=== PATIENT | female | born 1940 | race Caucasian/White ===

== ENCOUNTER 2018-11-02 09:45 | Inpatient (IN) ==
--- NOTE | 2018-10-01 16:36 | PAT Medication Instructions ---
Medication Instructions Date of Service October 01, 2018 Home Medications acetaminophen [Tylenol Extra Strength] 500 mg PO Q6H PRN biotin 5 mg PO QAM bisacodyl [Dulcolax (bisacodyl)] 5 mg PO HS PRN bumetanide 0.5 mg PO BID cholecalciferol (vitamin D3) 5,000 unit PO QAM cyclosporine [Restasis] 1 drp OPHTHALMIC (EYE) Q12H dextran 70-hypromellose [GenTeal Tears Mild] 1 drp OPHTHALMIC (EYE) BID diazepam [Valium] 5 mg PO HS docusate sodium [Colace] 100 mg PO QPM doxazosin 1 mg PO QPM fexofenadine 180 mg PO HS flecainide 100 mg PO Q12H folic acid 1 mg PO QAM levothyroxine [Synthroid] 75 mcg PO 6XWK linagliptin [Tradjenta] 5 mg PO QPM melatonin 3 mg PO HS metoprolol succinate 25 mg PO QPM potassium chloride [Klor-Con] 20 meq PO QAM ranitidine HCl 150 mg PO QAM rosuvastatin [Crestor] 10 mg PO HS ruxolitinib [Jakafi] 10 mg PO BID sennosides [senna] 2 mg PO HS sumatriptan succinate [Imitrex] 50 mg PO UD PRN thiamine HCl (vitamin B1) 250 mg PO QAM ASK your prescriber and surgeon ruxolitinib [Jakafi] 10 mg PO BID Take morning of surgery With a small sip of water, OTHERWISE NOTHING TO EAT OR DRINK AFTER MIDNIGHT: acetaminophen [Tylenol Extra Strength] 500 mg PO Q6H PRN (if needed) cyclosporine [Restasis] 1 drp OPHTHALMIC (EYE) Q12H dextran 70-hypromellose [GenTeal Tears Mild] 1 drp OPHTHALMIC (EYE) BID flecainide 100 mg PO Q12H levothyroxine [Synthroid] 75 mcg PO 6XWK (if scheduled) ranitidine HCl 150 mg PO QAM sumatriptan succinate [Imitrex] 50 mg PO UD PRN (if needed) Take evening before surgery acetaminophen [Tylenol Extra Strength] 500 mg PO Q6H PRN (if needed) bisacodyl [Dulcolax (bisacodyl)] 5 mg PO HS PRN (if needed) bumetanide 0.5 mg PO BID cyclosporine [Restasis] 1 drp OPHTHALMIC (EYE) Q12H dextran 70-hypromellose [GenTeal Tears Mild] 1 drp OPHTHALMIC (EYE) BID diazepam [Valium] 5 mg PO HS docusate sodium [Colace] 100 mg PO QPM doxazosin 1 mg PO QPM fexofenadine 180 mg PO HS flecainide 100 mg PO Q12H linagliptin [Tradjenta] 5 mg PO QPM melatonin 3 mg PO HS metoprolol succinate 25 mg PO QPM rosuvastatin [Crestor] 10 mg PO HS sennosides [senna] 2 mg PO HS sumatriptan succinate [Imitrex] 50 mg PO UD PRN (if needed) Other Notes If you have any questions please call us at [phone] or [phone] or [phone] or [phone]
--- NOTE | 2018-10-02 11:27 | Anesthesiology Consultation ---
Date of Service October 02, 2018 Assessment & Plan (1) Encounter for pre-operative examination: CHECK PLATELET COUNT AM DOS DR CHEN IS PLANNING TO GIVE PLATELETS AM DOS-- OR AND BLOOD BANK NOTIFIED. PT ALSO LIVES 2HRS AWAY -- SURGEON'S OFFICE NOTIFIED MULTIPLE TIMES TO MAKE LATER/LAST CASE. Cardio Clearance scheduled for 10/30/18. Chart Review Chart Review: Acceptable Risk for Surgery (PENDING CARDIAC CLEARANCE (DRCA) 10/30) and Patient seen in Pre Admission Testing Teaching & Discussion Instructed NPO after midnight before surgery, except medications with 15 cc of water. Medication instructions provided according to the PAT guidelines. History Surgery Operation Date: 11/02/18 07:00 Proposed Procedures p Left Reverse Total Shoulder Arthroplasty - Fazal Chen, DO Height/Weight Height: 5 ft 3 in Weight: 58.1 kg Allergies Allergy/AdvReac Type Severity Reaction Status Date / Time aspartame AdvReac Unknown ARTIFICIAL Verified 09/11/18 16:24 SWEETENERS-MIGRAINES cheese AdvReac Unknown PARMESAN Verified 09/11/18 16:24 CHEESE-MIGRAINES doxycycline AdvReac Unknown Photosensit Verified 09/11/18 15:17 ivity lactose AdvReac Unknown MILK Verified 10/12/18 12:53 PRODUCTS-GI UPSET midazolam [From Versed] AdvReac Unknown UNCONTROLLABLE Verified 09/11/18 15:17 EYE MOVEMENT monosodium glutamate AdvReac Unknown MIGRAINES Verified 09/11/18 15:19 Yeast AdvReac Unknown AUTOLYSED-M Verified 09/11/18 16:24 IGRAINES Medications Home Medications Medication Instructions Recorded Confirmed Last Taken acetaminophen [Tylenol Extra 500 mg PO Q6H PRN 09/11/18 09/11/18 Unknown Strength] biotin 5 mg PO QAM 09/11/18 09/11/18 Unknown bisacodyl [Dulcolax (bisacodyl)] 5 mg PO HS PRN 09/11/18 09/11/18 Unknown bumetanide 0.5 mg PO BID 09/11/18 09/11/18 Unknown cholecalciferol (vitamin D3) 5,000 unit PO QAM 09/11/18 09/11/18 Unknown [Vitamin D3] cyclosporine [Restasis] 1 drp OPHTHALMIC (EYE) Q12H 09/11/18 09/11/18 Unknown dextran 70-hypromellose [GenTeal 1 drp OPHTHALMIC (EYE) BID 09/11/18 09/11/18 Unknown Tears Mild] diazepam [Valium] 5 mg PO HS 09/11/18 09/11/18 Unknown docusate sodium [Colace] 100 mg PO QPM 09/11/18 09/11/18 Unknown doxazosin 1 mg PO QPM 09/11/18 09/11/18 Unknown fexofenadine 180 mg PO HS 09/11/18 09/11/18 Unknown flecainide 100 mg PO Q12H 09/11/18 09/11/18 Unknown folic acid 1 mg PO QAM 09/11/18 09/11/18 Unknown levothyroxine [Synthroid] 75 mcg PO 6XWK 09/11/18 09/11/18 Unknown linagliptin [Tradjenta] 5 mg PO QPM 09/11/18 09/11/18 Unknown melatonin 3 mg PO HS 09/11/18 09/11/18 Unknown metoprolol succinate 25 mg PO QPM 09/11/18 09/11/18 Unknown potassium chloride [Klor-Con] 20 meq PO QAM 09/11/18 09/11/18 Unknown ranitidine HCl 150 mg PO QAM 09/11/18 09/11/18 Unknown rosuvastatin [Crestor] 10 mg PO HS 09/11/18 09/11/18 Unknown ruxolitinib [Jakafi] 10 mg PO BID 09/11/18 09/11/18 Unknown sennosides [senna] 2 mg PO HS 09/11/18 09/11/18 Unknown sumatriptan succinate [Imitrex] 50 mg PO UD PRN 09/11/18 09/11/18 Unknown thiamine HCl (vitamin B1) [Vitamin 250 mg PO QAM 09/11/18 09/11/18 Unknown B-1] Past Medical History Medical History Atrial fibrillation HX A FIB/A FLUTTER. Has had unsuccessful cardioversion in the past, eventually pacemaker placed. Some episodes of afib seen on pacer checks. Not anticoagulated due to chronic thrombocytopenia/anemia. Carotid artery stenosis Per cardio office note 05/2018, LICA < 50%, DAILY OK on 2018 imaging. 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 Hypothyroidism THYROID NODULES CHECKED ANNUALLY Maxillary sinusitis, chronic Migraine Myelofibrosis X 20 YRS-F/U DR [facility]IOLA [facility] -- has had over 90 units transfused. Chronic thrombocytopenia, avg plts 74-93. Myocardial Infarction "OLD DC"-SEEN 2016 ON EKG-PT NOT AWARE Osteoarthritis Pacemaker Placed for a-fib, Medtronic. Most recent check 06/19/18. Exercise / Class Metabolic Activity II 4-5 Yardwork/Stairs/Walk up hill (Pt walks 3x per week, can do stairs without CP or SOB, +SOB if carrying laundry.) Past Surgical History Surgical History History of adenoidectomy History of augmentation of both breasts X 2 History of axillary surgery R/L BIOPSIES-USUALLY USES RIGHT ARM FOR BLOOD DRAWS History of bilateral tubal ligation LAPAROSCOPIC History of bone marrow biopsy X 14-2000 THRU 2014 History of cardiac cath 2016 NO BLOCKAGES-NO STENTS History of cardioversion For Afib. Unsuccessful. History of cataract surgery R/L History of colonoscopy History of herniorrhaphy History of hysterectomy WITH BSO/APPENDECTOMY History of incision and drainage PERIANAL ABSCESS History of lumpectomy of right breast History of tonsillectomy History of tooth extraction History of vascular access device PORT L UPPER CHEST-REMAINS IN PLACE History of vein stripping Pacemaker IMPLANTED 2016, most recent check 06/19/18 S/P transesophageal echocardiogram (SONIA) X 2-LAST ONE 03/2017 WITH ABLATION [facility] Past Anesthesia History No Hx of Anesthesia Complications and No Family Hx of Anesthesia Complications History of PONV No Hx of Motion Sickness and History of PONV (single episode with NISHANT/BSO in s) Social History Smoking Status: Never smoker Do You Dip or Chew Tobacco: No Hx Alcohol Use: Yes Alcohol type: beer alcohol intake frequency: a few times a month Hx Substance Use: No Review of Systems Pt denies any recent chest pain, shortness of breath, palpitations, cough, fever or URI. +sinusitis, chronic Physical Exam Vital Signs BP: 158/56 (pt is anxious today -- presented BP logs she keeps at home, systolic BP usually under 120) P: 60bpm SPO2: 98% RA T: 97.8 F R: 12 ENMT Mouth: + dentures (upper and lower partials); no chipped teeth and no loose teeth Thyromental Distance: > or= 3.5 Finger Breadths (4) Mallampati Class: II Neck normal visual inspection; neck extension not limited Respiratory normal respiratory effort Auscultation: lungs clear to auscultation bilaterally Cardiovascular Rate/Rhythm: regular rate and regular rhythm Heart Sounds: no murmur Vessels: no carotid bruit Extremities: no edema Testing Laboratory Results 10/02/18 11:56 PT 10.2 Seconds (9.0-12.0) 10/02/18 11:56 INR 1.0 (0.9-1.1) 10/02/18 11:56 APTT 26.4 Seconds (21.0-31.0) 10/02/18 11:56 Blood Type A Negative 10/02/18 11:56 Antibody Screen POSITIVE A 10/02/18 11:56 09/24/18 SODIUM: 132 POTASSIUM: 4.3 CHLORIDE: 101 CO2: 27 BUN: 19.0 CREATININE: 1.30 GLUCOSE: 107 *Spoke to Margo at [facility] -- they have spoken to [facility] re: patient's extensive blood transfusion history, and are coordinating with them to have blood available that is compatible with the patient's multiple antibodies. Electrocardiogram Date: 06/04/18 A paced, V sensed. Heart rate 65 bpm. Chest X-Ray Date: 10/02/18 FINDINGS: No pneumothorax. No pleural effusions. The heart is normal in size. Right-sided dual-chamber pacemaker. Left subclavian Port-A-Cath which terminates in the expected location of the distal left brachiocephalic vein. The mid aspect of the tubing is looped. The lungs are hyperexpanded with mild apical predominant emphysematous changes. The lungs are clear. 1. No acute process within the chest. 2. Emphysema. 3. Left subclavian Port-A-Cath which terminates in the expected location of the distal left brachiocephalic vein. The mid aspect of the tubing is looped. Echocardiogram Date: 04/20/17 The left ventricle is normal in size and function. The right ventricle is normal in size and function. Left atrial appendage velocities are normal. No thrombus detected in the left atrial appendage. The intra-atrial septum is intact with no evidence for an atrial septal defect. There is a catheter/pacemaker lead seen in the RA cavity. There is moderate mitral regurgitation. There is mild to moderate tricuspid regurgitation. Aortic valve is trileaflet with no regurgitation present. Mild pulmonic valvular regurgitation. Cardiac Catheterization Date: 02/24/16 Findings: + normal Indication: POD 1 from PPM placement developed chest pain with anterolateral ST depressions on EKG. Conclusions: Left main has no significant disease. LAD has no significant disease. It gives off several small diagonals with no significant disease. The left circumflex has no significant disease; it gives off a large obtuse marginal with no significant disease. The RCA is dominant with mild luminal irregularities. Other Testing Pacer check 06/19/2018 Supervisor Counseling And Guidance: Medtronic Implanted: 02/23/16 Mode: AAIR<=>DDDR Pacin.6% RA paced; 0.2% RV paced Battery: 3.01 volts, 7 years remaining Summary: Regular scheduled home transmission. No events.
--- NOTE | 2018-10-02 12:25 | XRay Report ---
XR chest Pre-admission PA/Lat HISTORY: Preop. COMPARISON: None. FINDINGS: No pneumothorax. No pleural effusions. The heart is normal in size. Right-sided dual-chambe r pacemaker. Left subclavian Port-A-Cath which terminates in the expected location of the distal left brachiocephalic vein. The mid aspect of the tubing is looped. The lungs are hyperexpanded with mild apical predominant emphysematous changes. The lungs are clear. IMPRESSION: 1. No acute process within the chest. 2. Emphysema. 3. Left subclavian Port-A-Cath which terminates in the expected location of the distal left brachioce phalic vein. The mid aspect of the tubing is looped. Electronically signed by: Bernabe Arora M.D. 10/02/2018 12:24 PM
[2018-10-02 13:18] LABS: Partial Thromboplastin Time 26.4 Seconds (21.0-31.0); Prothrombin Time 10.2 Seconds (9.0-12.0)
[2018-10-02 13:21] LABS: Eosinophils # (auto) 0.01 K/uL (0-0.5); Eosinophils % (auto) 0.3 %; Hematocrit (blood only) 30.9 % (37-47); Hemoglobin 10.1 g/dL (12.0-16.0); Immature Granulocytes # (auto) 0.09 K/uL (0.00-0.02); Immature Granulocytes % (auto) 2.5 %; Lymphocytes % (auto) 8.2 %; Mean Corpuscular Hemoglobin 31.5 pg (25-34); Mean Corpuscular Hgb Conc 32.7 g/dL (32-36); Mean Corpuscular Volume 96.3 fL (80-100); Mean Platelet Volume 11.3 fL (7.4-10.4); Monocytes # (auto) 0.25 K/uL (0.11-0.59); Monocytes % (auto) 6.8 %; Neutrophils # (auto) 3.02 K/uL (1.4-6.5); Neutrophils % (auto) 82.2 %; Platelet Count 84 K/uL (130-400); Platelet Estimate Decreased (Normal); RDW Standard Deviation 56.6 fL (36.4-46.3); Red Blood Count 3.21 M/uL (4.2-5.4); White Blood Count 3.67 K/uL (4.8-10.8)
--- NOTE | 2018-11-02 06:37 | History & Physical Report ---
Date of Service November 02, 2018 Assessment & Plan (1) Rotator cuff arthropathy of left shoulder: We will proceed with a left reverse shoulder arthroplasty. We will transfuse her with platelets preoperatively. Postoperatively she will be kept overnight for postoperative medical management. She plans to use [facility] upon discharge. Present on Admission?: Yes History of Present Illness Chief Complaint: Rotator cuff arthropathy of the left shoulder Primary Care Provider: Jaquelinewaynenomi Armas is a pleasant 78-year-old female with multiple medical comorbidities. She is been dealing with chronic increasing left shoulder pain. MRI, CT scan, and x-rays were all diagnostic for cuff arthropathy of the left shoulder. After failing extensive conservative treatment, including multiple injections, she has elected to proceed with a left reverse shoulder arthroplasty. Allergies Allergy/AdvReac Type Severity Reaction Status Date / Time aspartame AdvReac Unknown ARTIFICIAL Verified 09/11/18 16:24 SWEETENERS-MIGRAINES cheese AdvReac Unknown PARMESAN Verified 09/11/18 16:24 CHEESE-MIGRAINES doxycycline AdvReac Unknown Photosensit Verified 09/11/18 15:17 ivity lactose AdvReac Unknown MILK Verified 10/12/18 12:53 PRODUCTS-GI UPSET midazolam [From Versed] AdvReac Unknown UNCONTROLLABLE Verified 09/11/18 15:17 EYE MOVEMENT monosodium glutamate AdvReac Unknown MIGRAINES Verified 09/11/18 15:19 Yeast AdvReac Unknown AUTOLYSED-M Verified 09/11/18 16:24 IGRAINES Home Medications Home Medications Medication Instructions Recorded Confirmed Type acetaminophen [Tylenol Extra 500 mg PO Q6H PRN 09/11/18 09/11/18 History Strength] biotin 5 mg PO QAM 09/11/18 09/11/18 History bisacodyl [Dulcolax (bisacodyl)] 5 mg PO HS PRN 09/11/18 09/11/18 History bumetanide 0.5 mg PO BID 09/11/18 09/11/18 History cholecalciferol (vitamin D3) 5,000 unit PO QAM 09/11/18 09/11/18 History [Vitamin D3] cyclosporine [Restasis] 1 drp OPHTHALMIC (EYE) Q12H 09/11/18 09/11/18 History dextran 70-hypromellose [GenTeal 1 drp OPHTHALMIC (EYE) BID 09/11/18 09/11/18 History Tears Mild] diazepam [Valium] 5 mg PO HS 09/11/18 09/11/18 History docusate sodium [Colace] 100 mg PO QPM 09/11/18 09/11/18 History doxazosin 1 mg PO QPM 09/11/18 09/11/18 History fexofenadine 180 mg PO HS 09/11/18 09/11/18 History flecainide 100 mg PO Q12H 09/11/18 09/11/18 History folic acid 1 mg PO QAM 09/11/18 09/11/18 History levothyroxine [Synthroid] 75 mcg PO 6XWK 09/11/18 09/11/18 History linagliptin [Tradjenta] 5 mg PO QPM 09/11/18 09/11/18 History melatonin 3 mg PO HS 09/11/18 09/11/18 History metoprolol succinate 25 mg PO QPM 09/11/18 09/11/18 History potassium chloride [Klor-Con] 20 meq PO QAM 09/11/18 09/11/18 History ranitidine HCl 150 mg PO QAM 09/11/18 09/11/18 History rosuvastatin [Crestor] 10 mg PO HS 09/11/18 09/11/18 History ruxolitinib [Jakafi] 10 mg PO BID 09/11/18 09/11/18 History sennosides [senna] 2 mg PO HS 09/11/18 09/11/18 History sumatriptan succinate [Imitrex] 50 mg PO UD PRN 09/11/18 09/11/18 History thiamine HCl (vitamin B1) [Vitamin 250 mg PO QAM 09/11/18 09/11/18 History B-1] Past Med/Surg History Medical History Atrial fibrillation HX A FIB/A FLUTTER. Has had unsuccessful cardioversion in the past, eventually pacemaker placed. Some episodes of afib seen on pacer checks. Not anticoagulated due to chronic thrombocytopenia/anemia. Carotid artery stenosis Per cardio office note 05/2018, LICA < 50%, DAILY OK on 2018 imaging. 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 Hypothyroidism THYROID NODULES CHECKED ANNUALLY Maxillary sinusitis, chronic Migraine Myelofibrosis X 20 YRS-F/U DR [facility] -- has had over 90 units transfused. Chronic thrombocytopenia, avg plts 74-93. Myocardial Infarction "OLD SD"-SEEN 2016 ON EKG-PT NOT AWARE Osteoarthritis Pacemaker Placed for a-fib, Medtronic. Most recent check 06/19/18. Surgical History History of adenoidectomy History of augmentation of both breasts X 2 History of axillary surgery R/L BIOPSIES-USUALLY USES RIGHT ARM FOR BLOOD DRAWS History of bilateral tubal ligation LAPAROSCOPIC History of bone marrow biopsy X 14-2000 THRU 2014 History of cardiac cath 2016 NO BLOCKAGES-NO STENTS History of cardioversion For Afib. Unsuccessful. History of cataract surgery R/L History of colonoscopy History of herniorrhaphy History of hysterectomy WITH BSO/APPENDECTOMY History of incision and drainage PERIANAL ABSCESS History of lumpectomy of right breast History of tonsillectomy History of tooth extraction History of vascular access device PORT L UPPER CHEST-REMAINS IN PLACE History of vein stripping Pacemaker IMPLANTED 2016, most recent check 06/19/18 S/P transesophageal echocardiogram (SONIA) X 2-LAST ONE 03/2017 WITH ABLATION [facility] Social History Preferred Language: Kinyarwanda Communication Ability: Effective 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 Beliefs That Will Affect Care: None Current Living Situation: Spouse Other Information That Helps Us Care for You: No Feels Safe at Home: Yes Safety Concerns: Feels Safe At This Time Smoking Status: Never smoker Do You Dip or Chew Tobacco: No ; Second Hand Exposure: No ; Hx Alcohol Use: Yes Alcohol type: beer Hx Substance Use: No Review of Systems All systems reviewed & are unremarkable except as noted in HPI & below Physical Exam Constitutional: WD/WN, vitals as above Eyes: PERRL, conjunctivae normal, anicteric sclerae ENMT: external ear and nose normal, oropharynx normal Neck: trachea midline, no thyromegaly Respiratory: normal respiratory effort Cardiovascular: RRR, no murmur, no edema Gastrointestinal (Abdomen): normal bowel sounds, soft, nontender, no hepatosplenomegaly Musculoskeletal: Physical examination of the left shoulder reveals decreased range of motion and significant weakness. There is tenderness palpation along the anterior glenohumeral joint line. The right upper extremity is neurovascularly intact. Psychiatric: A+Ox3, euthymic affect Results & Data Diagnostic Findings Radiographs of the left shoulder show some signs of osteoarthritis with blunting of the greater tuberosity and some superior migration of the humeral head on the glenoid.
[~2018-11-02 09:45] MED LIST: ACETAMINOPHEN 500 MG TAB PO SCH; BUPIVACAINE 0.5 % 5 MG/1 ML PF 10ML VIAL ONE; BUPIVACAINE LIPOSOME/PF 266 MG, BUPIVACAINE/EPINEPHRINE 50 ML, SODIUM CHLORIDE 0.9% 30 ... INFIL SCH; CEFAZOLIN 1000MG 1,000 MG/7.5 ML SYR IV SCH; FAMOTIDINE 20 MG TAB PO SCH; GABAPENTIN 300 MG CAP PO SCH; LR 15ML/HR IV SCH; LR 60ML/HR IV SCH; ROPIVACAINE 0.5% HCL/PF 150 MG, BUPIVACAINE 0.5% MPF 30 ML, EPINEPHrine 30MG/30ML (OR U... INFIL SCH; SODIUM CHLORIDE 0.9% 1,000 ML IV SCH; TRANEXAMIC ACID 1,000 MG **IV Intra-op IV SCH; TRANEXAMIC ACID 1,000 MG **IV Pre-op IV SCH
[2018-11-02 10:29] LABS: Platelet Count 71 K/uL (130-400)
[2018-11-02 10:43] LABS: Platelet Estimate Decreased (Normal)
--- NOTE | 2018-11-02 10:53 | History & Physical Bridge Note ---
Date of Service November 02, 2018 History & Physical Bridge Note I have examined the patient, reviewed the History & Physical and in the interval since the performance of the History & Physical I have noted the following changes of clinical significance: no changes noted
[2018-11-02] MEDS ORDERED: SODIUM CHLORIDE 0.9% 250 ML IV PRN (11:22)
[2018-11-02] MEDS ORDERED: LIDOCAINE HCL 2% 2 ML VIAL/AMP(20MG/ML) INFIL ONE (12:14)
[2018-11-02] MEDS ORDERED: fentaNYL citrate 100 MCG/2 ML VIAL ONE (12:14)
[2018-11-02] MEDS ORDERED: ONDANSETRON INJ 2 MG/ML 2 ML VIAL ONE (12:14)
[2018-11-02] MEDS ORDERED: PROPOFOL IV EMULSION 10 MG/ML 20 ML VIAL IV ONE (12:14)
[2018-11-02] MEDS ORDERED: MIDAZOLAM HCL 1 MG/ML 2ML VIAL ONE (12:14)
[2018-11-02] MEDS ORDERED: ROCURONIUM BROMIDE 10 MG/ML 5 ML VIAL ONE (12:14)
[2018-11-02] MEDS ORDERED: LIDOCAINE HCL 2% MPF (LOCAL) 5 ML VIAL INFIL ONE (13:12)
[2018-11-02] MEDS ORDERED: ORTHO JOINT ANESTHETIC ONE (13:22)
[2018-11-02] MEDS ORDERED: fentaNYL citrate 100 MCG/2 ML VIAL IV PRN (13:42)
[2018-11-02] MEDS ORDERED: ePHEDrine sulfate 50 MG/ML AMP IV PRN (13:42)
[2018-11-02] MEDS ORDERED: ATROPINE SULFATE 0.1 MG/ML 10ML SYR IV PRN (13:42)
[2018-11-02] MEDS ORDERED: ONDANSETRON INJ 2 MG/ML 2 ML VIAL IV PRN ×2 (13:42→16:09)
[2018-11-02] MEDS ORDERED: PHENYLEPHRINE HCL 10 MG/ML VIAL ONE (14:08)
[2018-11-02] MEDS ORDERED: GLYCOPYRROLATE 0.2 MG/ML VIAL ONE (14:50)
[2018-11-02] MEDS ORDERED: NEOSTIGMINE METHYLSULFATE 5 MG/5 ML SYR ONE (14:50)
--- NOTE | 2018-11-02 14:53 | Operative Report ---
Post Operative Report Pre & Post Diagnosis Operation Date: 11/02/18 12:30 Pre-Op Diagnosis: Left Shoulder Degenerative Joint Disease Post-Op Diagnosis: Left Shoulder Degenerative Joint Disease Procedure Operation Date: 11/02/18 12:30 Actual Procedures p Left Reverse Total Shoulder Arthroplasty(Left) - Fazal Bay DO Surgeon Fazal Bay DO Car Wash Attendant Automatic Fazal Wetzel PAC Estimated Blood Loss 100 Findings Consistent with Post-Op Diagnosis Specimens Left humeral head Complications none Disposition Disposition: Recovery Room Indications Chanda is a pleasant 78-year-old female who presented my office with chronic increasing left shoulder pain. X-rays and clinical examination were diagnostic for rotator cuff arthropathy of the left shoulder. After failing conservative treatment, she elected to proceed with a left reverse shoulder arthroplasty. Description of Procedure Implants used: I used a [employer] Comprehensive reverse total shoulder arthroplasty system with a size 8 press fit mini humeral stem, a standard humeral tray and a standard humeral bearing, a 25 mm baseplate with a 6.5 mm central screw and superior and inferior locking screws, and a size 36 mm eccentric glenosphere. The patient arrived at [facility] for the above procedure. There were seen in the preoperative holding area and the operative extremity was identified and signed. They were given a preoperative antibiotic and an interscalene nerve block. They were taken back to the operating room, laid on table in supine position, and put under general anesthesia. They were then put into the beachchair position. The shoulder was then prepped and draped in sterile fashion. A timeout was done and the patient in the operative extremity was properly identified. A deltopectoral approach was used. Dissection was taken down through the fascia and the deltoid was retracted laterally and the conjoined tendon was retracted medially. The anterior shoulder was exposed. The long head of the biceps tendon was tenodesed to the upper border of the pectoralis major. The subscapularis was then released off the lesser tuberosity with a centimeter of cuff tissue remaining. The inferior capsule was released and the humeral head was dislocated. A canal finding reamer was sent down the center of the humeral canal. Sequential reaming up to a size 8 reamer was done. Off that reamer, a proximal humeral resection guide was placed. The proximal humerus was resected at 135 of inclination and 25 of retroversion. Osteophytes were then removed and the glenoid was exposed. Time was spent doing a complete capsular and labral release. The glenoid guide was then placed in the inferior aspect of the glenoid. A 3.2 mm Steinmann pin was then placed into the glenoid vault at 10 of inclination. The glenoid baseplate was then reamed. The final size 25 mm baseplate was then impacted in the place. A 6.5 mm central screw was then placed followed by superior and inferior locking screws. A 36 mm eccentric glenoid sphere was then impacted into place. Surrounding soft tissues were then injected with 100 cc an orthopedic pain control cocktail. The proximal humerus was then exposed. Sequential broaching of the humerus up to a size 8 broach was done. Off that broach a standard humeral tray was trialed. The shoulder was then reduced, brought through a full range of motion and felt to be stable. The shoulder was then dislocated and the broach was removed. The final size 8 mini press-fit humeral stem was then impacted into place. A standard humeral bearing was then snapped onto a standard humeral tray. The humeral tray was then impacted onto the humeral stem. The shoulder was once again reduced, brought through a full range of motion and felt to be stable. The subscapularis was chronically torn and unrepairable. A dilute betadyne lavage was then done for 3 minutes. The joint was then irrigated with normal saline solution. Hemostasis was obtained. The skin was then closed with 2-0 Vicryl, 3-0V lock suture, and nikolay. A soft dressing and a regular arm sling was placed. The patient was then extubated and transferred to a hospital bed. They were taken to the postanesthesia care unit in stable condition. They tolerated the procedure well. I attest to the content of the Intraoperative Record and any orders documented therein. Any exceptions are noted below.
--- NOTE | 2018-11-02 15:34 | XRay Report ---
XR shoulder LT min 2V routine CLINICAL HISTORY: Post shoulder surgery COMPARISON: May 2017 DISCUSSION: There are postsurgical changes of a reverse total left shoulder arthroplasty. There is no dislocation. There are overlying skin nikolay. There is air within the soft tissues consistent with recent surgery. IMPRESSION: Postsurgical changes of a reverse total left shoulder arthroplasty. No complicating featu res identified. Electronically signed by: Clint Yan M.D. 11/02/2018 3:33 PM
[2018-11-02] MEDS ORDERED: HYDROmorphone INJ 0.5 MG/0.5 ML SYR IV PRN (16:09)
[2018-11-02] MEDS ORDERED: BISACODYL 10 MG SUPP PR PRN (16:09)
[2018-11-02] MEDS ORDERED: METOCLOPRAMIDE HCL INJ 5 MG/ML 2 ML VIAL IV PRN (16:09)
[2018-11-02] MEDS ORDERED: MAGNESIUM HYDROXIDE SUSP 30 ML UDC PO PRN (16:09)
[2018-11-02] MEDS ORDERED: SUMAtriptan succinate 50 MG TAB PO PRN (16:09)
[2018-11-02] MEDS ORDERED: NALOXONE HCL 0.4 MG/1 ML VIAL/CARP IV PRN (16:09)
--- NOTE | 2018-11-02 16:24 | Anesthesiology Progress Note ---
Date of Service November 02, 2018 Anesthesia Post Procedure Vital Signs Vital Signs: Temp Pulse Pulse Pulse Resp BP BP 11/02/18 15:55 60 16 129/58 L 11/02/18 15:45 36.4 C L 62 16 156/49 H 11/02/18 15:35 63 18 157/61 H 11/02/18 15:25 66 14 159/58 H 11/02/18 15:17 36.0 C L 70 16 149/61 H 11/02/18 12:06 36.9 C 67 18 161/60 H 11/02/18 11:59 36.7 C 67 18 162/70 H 11/02/18 11:44 36.7 C 66 18 189/73 H 11/02/18 11:29 36.5 C 65 18 182/61 H 11/02/18 11:09 36.5 C 63 18 189/67 H 11/02/18 10:43 36.7 C 71 20 183/62 H Pulse Ox 11/02/18 15:55 97 11/02/18 15:45 98 11/02/18 15:35 98 11/02/18 15:25 100 11/02/18 15:17 100 11/02/18 12:06 11/02/18 11:59 97 11/02/18 11:44 98 11/02/18 11:29 99 11/02/18 11:09 98 11/02/18 10:43 97 Transfer of Care Handoff Completed per policy Notes Mental Status: alert / awake / arousable Patient Amnestic to Procedure: Yes Nausea / Vomiting: adequately controlled Pain: adequately controlled Airway Patency, RR, SpO2: stable & adequate BP & HR: stable & adequate Hydration State: stable & adequate Anesthetic Complications: no major complications apparent and Pt Satisfied with anesthetic care
[2018-11-02] MEDS ORDERED: PHARMACY GLYCEMIC MGMT CONSULT PRN (16:47)
[2018-11-02] MEDS: BUMETANIDE 1 MG TAB PO SCH (18:02)
[2018-11-02] MEDS: FLECAINIDE ACETATE 100 MG TABLET PO SCH (18:02)
[2018-11-02] MEDS: INSULIN ASPART 100 UNITS/ML 3 ML PEN SC SCH ×2 (18:11→20:39)
[2018-11-02] MEDS ORDERED: COUGH DROP (SUGAR FREE) LOZ 24 LOZ/1 BOX BUCCAL PRN (18:28)
[2018-11-02] MEDS ORDERED: COUGH DROP (SUGAR FREE) LOZ 24 LOZ/1 BOX BUCCAL ONE (18:34)
[2018-11-02] MEDS: SODIUM CHLORIDE 0.9% 1000ML 1,000 ML IV SCH (19:48)
[2018-11-02] MEDS: FEXOFENADINE HCL 180 MG TAB PO SCH (20:32)
[2018-11-02] MEDS: DOXAZOSIN MESYLATE 1 MG TAB PO SCH (20:33)
[2018-11-02] MEDS: DOCUSATE SODIUM 100 MG CAP PO SCH ×2 (20:33)
[2018-11-02] MEDS: SENNA 8.6 MG TAB PO SCH (20:34)
[2018-11-02] MEDS: ROSUVASTATIN CALCIUM 10 MG TAB PO SCH (20:34)
[2018-11-02] MEDS: METOPROLOL SUCC 25MG EXT REL TAB PO SCH (20:34)
[2018-11-02] MEDS ORDERED: SENNA 8.6 MG TAB PO SCH (21:00)
[2018-11-02] MEDS: ACETAMINOPHEN 500 MG TAB PO SCH (21:38)
[2018-11-02] MEDS: CEFAZOLIN 2000MG 2,000 MG/15 ML SYR IV SCH (21:38)
[2018-11-03] MEDS: ACETAMINOPHEN 500 MG TAB PO SCH ×3 (05:30→17:17)
[2018-11-03] MEDS: CEFAZOLIN 2000MG 2,000 MG/15 ML SYR IV SCH (05:31)
[2018-11-03] MEDS: SODIUM CHLORIDE 0.9% 1000ML 1,000 ML IV SCH (06:10)
[2018-11-03] MEDS ORDERED: LEVOTHYROXINE SODIUM 75 MCG TABLET PO SCH (06:30)
[2018-11-03 06:52] LABS: Hematocrit (blood only) 25.5 % (37-47); Hemoglobin 8.5 g/dL (12.0-16.0); Mean Corpuscular Hemoglobin 32.4 pg (25-34); Mean Corpuscular Hgb Conc 33.3 g/dL (32-36); Mean Corpuscular Volume 97.3 fL (80-100); RDW Standard Deviation 60.3 fL (36.4-46.3); Red Blood Count 2.62 M/uL (4.2-5.4); White Blood Count 3.96 K/uL (4.8-10.8)
[2018-11-03 07:26] LABS: Mean Platelet Volume 10.3 fL (7.4-10.4); Platelet Count 65 K/uL (130-400)
[2018-11-03 07:39] LABS: BUN Creatinine Ratio 10.1 (10-20); Calcium 8.2 mg/dl (8.5-10.1); Creatinine Clr Calc Pharmacy 36.8 ml/min; Est GFR (African American) 58.7; Est GFR (Non-African American) 50.6; Potassium 3.7 mmol/L (3.5-5.1)
[2018-11-03 08:19] LABS: Immature Granulocytes # (auto) 0.01 K/uL (0.00-0.02); Immature Granulocytes % (auto) 0.3 %; Lymphocytes # (auto) 0.09 K/uL (1.2-3.4); Lymphocytes % (auto) 2.3 %; Monocytes # (auto) 0.32 K/uL (0.11-0.59); Monocytes % (auto) 8.1 %; Neutrophils # (auto) 3.54 K/uL (1.4-6.5); Neutrophils % (auto) 89.3 %
[2018-11-03] MEDS ORDERED: SODIUM CHLORIDE 0.9% 250 ML IV PRN ×2 (08:22→11:15)
--- NOTE | 2018-11-03 08:35 | Orthopedic Progress Note ---
Date of Service November 03, 2018 Assessment & Plan (1) Rotator cuff arthropathy of left shoulder: Overall she is doing very well. She is asymptomatic with regards to her left shoulder and her anemia. She has a history of myelofibrosis. She usually gets a transfusion of 2 units of packed red blood cells if her hemoglobin drops below 8. Her hemoglobin is currently 8.5 and likely to drop more by tomorrow. I am going to transfuse her with 2 units of packed red blood cells. I will orde r an H&H an hour after the second transfusion. If the H&H is reasonable then she can be discharged home later this afternoon. She will follow-up with orthopedics in 2 weeks. She will get physical therapy at the hospital before the blood transfusion this morning. Present on Admission?: Yes Subjective Chanda was seen and examined at bedside this morning. Overall she is doing very well. She is not having the left shoulder. She was able to get some sleep last night. She is asymptomatic and has no complaints. She has already been up and ambulating. Physical Exam Musculoskeletal: On physical examination of the left shoulder, the dressing is clean and dry. She has limited motion of her left hand because a nerve block is still working. She is wearing her sling as instructed. Results & Data Vital Signs (Past 12 Hours) Vital Signs Temp Pulse Pulse Resp BP Pulse Ox 11/03/18 06:52 36.3 C L 66 18 148/74 H 100 11/03/18 03:19 36.3 C L 64 18 157/68 H 97 11/02/18 23:37 36.2 C L 60 18 132/72 98 PG Care Time/CCT Total # of Minutes Spent Total Time Spent with Patient: Total time spent is greater than 50% in coordination of care (as documented) at patient's floor/unit and/or counseling patient:
[2018-11-03] MEDS: DOCUSATE SODIUM 100 MG CAP PO SCH ×4 (09:08→20:58)
[2018-11-03] MEDS: MULTIVITAMIN TAB PO SCH (09:08)
[2018-11-03] MEDS: POTASSIUM CHLORIDE PWD 20 MEQ PACK PO SCH (09:08)
[2018-11-03] MEDS: THIAMINE HCL 50 MG TABLET PO SCH (09:08)
[2018-11-03] MEDS: FLECAINIDE ACETATE 100 MG TABLET PO SCH ×2 (09:09→20:57)
[2018-11-03] MEDS: BUMETANIDE 1 MG TAB PO SCH ×2 (09:09→17:03)
[2018-11-03] MEDS: INSULIN ASPART 100 UNITS/ML 3 ML PEN SC SCH ×5 (09:11→20:58)
[2018-11-03] MEDS ORDERED: FUROSEMIDE IV SCH ×2 (12:00→18:00)
[2018-11-03] MEDS: OXYCODONE HCL IR 5 MG TAB (IMMEDIATE RELEASE) PO PRN (17:00)
[2018-11-03] MEDS: DOXAZOSIN MESYLATE 1 MG TAB PO SCH (20:57)
[2018-11-03] MEDS: SENNA 8.6 MG TAB PO SCH (20:57)
[2018-11-03] MEDS: METOPROLOL SUCC 25MG EXT REL TAB PO SCH (20:57)
[2018-11-03] MEDS: ROSUVASTATIN CALCIUM 10 MG TAB PO SCH (20:57)
[2018-11-03] MEDS: FEXOFENADINE HCL 180 MG TAB PO SCH (20:57)
[2018-11-04 00:24] LABS: Hematocrit (blood only) 31.3 % (37-47); Hemoglobin 10.4 g/dL (12.0-16.0)
[2018-11-04] MEDS: ACETAMINOPHEN 500 MG TAB PO SCH (05:44)
[2018-11-04 06:10] LABS: Hematocrit (blood only) 32.7 % (37-47); Mean Corpuscular Hemoglobin 32.4 pg (25-34); Mean Corpuscular Hgb Conc 33.6 g/dL (32-36); Mean Corpuscular Volume 96.2 fL (80-100); RDW Coefficient of Variation 17.7 % (11.5-14.5); RDW Standard Deviation 61.8 fL (36.4-46.3); White Blood Count 4.32 K/uL (4.8-10.8)
[2018-11-04 06:32] LABS: Mean Platelet Volume 11.6 fL (7.4-10.4); Platelet Count 69 K/uL (130-400)
[2018-11-04 06:55] LABS: Eosinophils # (auto) 0.02 K/uL (0-0.5); Eosinophils % (auto) 0.5 %; Immature Granulocytes # (auto) 0.05 K/uL (0.00-0.02); Immature Granulocytes % (auto) 1.2 %; Lymphocytes # (auto) 0.39 K/uL (1.2-3.4); Monocytes # (auto) 0.44 K/uL (0.11-0.59); Monocytes % (auto) 10.2 %; Neutrophils # (auto) 3.42 K/uL (1.4-6.5); Neutrophils % (auto) 79.1 %
[2018-11-04] MEDS: MULTIVITAMIN TAB PO SCH (08:50)
[2018-11-04] MEDS: FLECAINIDE ACETATE 100 MG TABLET PO SCH (08:50)
[2018-11-04] MEDS: BUMETANIDE 1 MG TAB PO SCH (08:50)
[2018-11-04] MEDS: THIAMINE HCL 50 MG TABLET PO SCH (08:50)
[2018-11-04] MEDS: DOCUSATE SODIUM 100 MG CAP PO SCH (08:51)
[2018-11-04] MEDS: POTASSIUM CHLORIDE PWD 20 MEQ PACK PO SCH (08:51)
[2018-11-04] MEDS: INSULIN ASPART 100 UNITS/ML 3 ML PEN SC SCH (08:51)
--- NOTE | 2018-11-04 09:05 | Progress Note ---
DATE: 11/04/2018 SUBJECTIVE: A 78-year-old white female postop day #2 from a left reverse arthroplasty. She is doing pretty well. She has got some underlying myelofibrosis and transfusion of 2 units of blood yesterday. She is doing well. No chest pain or shortness of breath. Not feeling dizzy or lightheaded. OBJECTIVE: VITAL SIGNS: Temperature 36.7. Vital signs stable. GENERAL: Physical examination shows a pleasant middle-aged female. She is sitting up in her bedside chair, looks comfortable. EXTREMITIES: Examination of left arm reveals the dressing to be clean, dry and intact. Shoulder is located. Sling is in place. She is neurologically intact. LABORATORY DATA: Hemoglobin 11.0. Hematocrit 32.7. ASSESSMENT: A 78-year-old white female postop day #2 from a left reverse shoulder arthroplasty, doing pretty well. Her anemia is improved. She is asymptomatic. PLAN: We are going to continue medical management. Continue postop protocol. We will mobilize this morning and if doing okay, we will discharge her to home. She will follow up with Dr. Bay in about 2 weeks. LAUREN
[2018-11-04] MEDS: OXYCODONE HCL IR 5 MG TAB (IMMEDIATE RELEASE) PO PRN (10:07)
--- NOTE | 2018-11-05 07:59 | Discharge Summary ---
Date of Service November 05, 2018 Admission HPI Per Admitting Provider Chanda is a pleasant 78-year-old female with multiple medical comorbidities. She is been dealing with chronic increasing left shoulder pain. MRI, CT scan, and x-rays were all diagnostic for cuff arthropathy of the left shoulder. After failing extensive conservative treatment, including multiple injections, she has elected to proceed with a left reverse shoulder arthroplasty. Principal Diagnosis Left reverse shoulder arthroplasty Discharge Data Allergies Allergy/AdvReac Type Severity Reaction Status Date / Time aspartame AdvReac Unknown ARTIFICIAL Verified 09/11/18 16:24 SWEETENERS-MIGRAINES cheese AdvReac Unknown PARMESAN Verified 09/11/18 16:24 CHEESE-MIGRAINES doxycycline AdvReac Unknown Photosensit Verified 09/11/18 15:17 ivity lactose AdvReac Unknown MILK Verified 10/12/18 12:53 PRODUCTS-GI UPSET midazolam [From Versed] AdvReac Unknown UNCONTROLLABLE Verified 09/11/18 15:17 EYE MOVEMENT monosodium glutamate AdvReac Unknown MIGRAINES Verified 09/11/18 15:19 Yeast AdvReac Unknown AUTOLYSED-M Verified 09/11/18 16:24 IGRAINES Consultations 11/02/18 16:09 Consult Case Management - Discharge Planning Routine Procedures Performed Operation Date: 11/02/18 12:30 Actual Procedures p Left Reverse Total Shoulder Arthroplasty(Left) - Fazal Bay DO Ordered Studies 11/02/18 05:00 US - OR guided needle placemen Routine Hospital Course (1) Rotator cuff arthropathy of left shoulder: On November 02, 2018 Chanda arrived at [facility] and underwent a left reverse shoulder arthroplasty without complication. She had a sixpack of platelets before the procedure. Postoperatively she was placed in an arm sling and discharged to general orthopedic floors. Her hospital course was relatively uneventful. On postop day #1 she was feeling okay and relatively asymptomatic. She does have a history of myelofibrosis. Her H&H had dropped to 8 and 25. She states that she normally gets a transfusion at this point. I transfused her with 2 units of irradiated packed red blood cells. She was able to get physical therapy that morning. Her pain was well controlled. On postop day #2 she continued to do well. Her H&H had risen to normal levels. She was then discharged home with physical therapy. She will follow-up with orthopedics in 2 weeks. Total Time Total Time Spent Total Time Spent (In Minutes): 20 Discharge Plan Discharge Items Patient Disposition: Home - Home Health Services Reason For Visit: Left shoulder Rotator Cuff Arthropathy Discharge Diagnosis: Left reverse shoulder arthroplasty Discharge Goals: Decrease discomfort and Improve function Activity: Per 'Additional Instructions' section Non-emergency contact: Surgeon Call non-emergency contact if: your wound has increased redness and your wound has increased drainage Follow-up/Referrals: Elie Singleton DO [Primary Care Provider] - Diet: Carb Consistent or DM2 Addtl Provider Instructions: Activity and Therapy Recommendations: * If you are using [facility] then therapy will be provided at your home until they feel you have accomplished all of your goals. * If you are using [facility] then Physical Therapy will be provided until they feel you are ready to start Outpatient Physical Therapy. * If you are not using home therapy then Outpatient Physical Therapy should start about 3-5 days from your day of surgery. Therapy will last about 8-12 weeks * Wear your sling for 3 weeks, unless otherwise instructed. You may remove your sling to shower and to dress, but otherwise, you should be in your sling at all times, including while sleeping * The shoulder replacement is very stable and you can use your hand while in the sling * You were shown a series of exercises in the hospital. Do these exercises daily including the exercises you were shown in physical therapy. Medications: * Narcotic You will likely be sent home from the hospital with a prescription for the narcotic pain medication that worked best throughout your stay. * Other medications may be prescribed for specific circumstances. If you have any questions, please call the office at . * Resume previous home medications unless otherwise instructed Dressing Care: Leave the plastic dressing in place for 5 days. After 5 days you may remove the plastic dressing. If the incision is not draining then you may leave the nikolay open to air. If there is a little bit of drainage or if the nikolay are getting stuck on your clothing then cover the incision with a dry dressing. The nikolay will be removed at your 2 week follow-up appointment. Showering: You may shower with the plastic dressing in place. Let the shower spray hit the other shoulder. You can pat the plastic dry. If the dressing becomes wet underneath the plastic then simply remove the dressing. Keep the incision dry until you are 5 days out from the day of surgery. At that time you can shower with the nikolay exposed. Let the soapy shower water run over the nikolay and pat them dry. Do not scrub or soak the incision. Things To Watch For: * Drainage from the incision site that occurs more than one week after your surgery. * Increased redness at the incision site. * Fever above 102 degrees Fahrenheit. * Unusual chest pain or shortness of breath. * Call [facility] at with any of the above problems Follow-Up Visit: Follow-up with Dr. Bay 2-3 weeks after your day of surgery. An appointment was probably scheduled when you signed-up for surgery in the office. If you have any questions call Office Instructions: More detailed instructions as well as Frequently Asked Questions were provided in a folder by our office when you signed-up for surgery. Please review these instructions when you get home. If you have any further questions or concerns, please feel free to call the office at [phone] Prescriptions: New oxycodone 5 mg Tablet 5 mg PO Q4H PRN (Reason: pain) Qty: 30 RF: 0 Continued doxazosin 1 mg Tablet 1 mg PO QPM RF: 0 sumatriptan succinate [Imitrex] 50 mg Tablet 50 mg PO UD PRN (Reason: Migraine Headache) RF: 0 fexofenadine 180 mg Tablet 180 mg PO HS RF: 0 thiamine HCl (vitamin B1) [Vitamin B-1] 250 mg Tablet 250 mg PO QAM RF: 0 bumetanide 0.5 mg Tablet 0.5 mg PO BID RF: 0 flecainide 100 mg Tablet 100 mg PO Q12H RF: 0 docusate sodium [Colace] 100 mg Capsule 100 mg PO QPM RF: 0 folic acid 1 mg Tablet 1 mg PO QAM RF: 0 rosuvastatin [Crestor] 10 mg Tablet 10 mg PO HS RF: 0 biotin 5 mg Tablet 5 mg PO QAM RF: 0 cholecalciferol (vitamin D3) [Vitamin D3] 5,000 unit Tablet 5,000 unit PO QAM RF: 0 GenTeal Tears Mild 0.1-0.3 % Drops 1 drp OPHTHALMIC (EYE) BID RF: 0 Jakafi 10 mg Tablet 10 mg PO BID RF: 0 sennosides [senna] 8.6 mg Tablet 2 mg PO HS RF: 0 melatonin 3 mg Tablet 3 mg PO HS RF: 0 acetaminophen [Tylenol Extra Strength] 500 mg Tablet 500 mg PO Q6H PRN (Reason: Pain) RF: 0 levothyroxine [Synthroid] 75 mcg Tablet 75 mcg PO 6XWK RF: 0 potassium chloride [Klor-Con] 20 mEq Packet 20 meq PO QAM RF: 0 ranitidine HCl 150 mg Tablet 150 mg PO QAM RF: 0 bisacodyl [Dulcolax (bisacodyl)] 5 mg Tablet,Delayed Release (Dr/Ec) 5 mg PO HS PRN (Reason: Constipation) RF: 0 Restasis 0.05 % Dropperette 1 drp OPHTHALMIC (EYE) Q12H RF: 0 metoprolol succinate 25 mg Capsule,Sprinkle,Er 24hr 25 mg PO QPM RF: 0 diazepam [Valium] 5 mg Tablet 5 mg PO HS RF: 0 Tradjenta 5 mg Tablet 5 mg PO QPM RF: 0 Stand-Alone Forms: [facility], [facility] Discharge Orders: Discharge Order (Routine); Ordered 11/03/18 Ordered By: Fazal Bay Admission Data Admit Date/Time: 11/02/18 15:21 Attending Provider: Fazal Bay Admit Provider: Fazal Bay Primary Care Provider: Elie Singleton Service: Surgical Services Other Interventions: Discharge Summary Assessment (RN) Last Done: 11/04/18 09:52 DC Date/Time DO NOT enter until pt leaves facility: 11/04/18 10:35
== END 2018-11-04 10:35 | disposition home health service (06) | DRG 483 ==
LOC: ASU 09:45 → 3E 15:21

== ENCOUNTER 2019-12-06 05:03 | Observation (INO) ==
--- NOTE | 2019-11-12 15:17 | PAT Medication Instructions ---
Medication Instructions Date of Service November 12, 2019 Home Medications GenTeal Tears Mild 1 drp OPHTHALMIC (EYE) BID PRN Jakafi 10 mg PO BID Restasis 1 drp OPHTHALMIC (EYE) Q12H Tradjenta 5 mg PO QPM acetaminophen [Tylenol Extra Strength] 500 mg PO Q6H PRN biotin 5 mg PO QAM bisacodyl [Dulcolax (bisacodyl)] 5 mg PO HS PRN bumetanide 0.25 mg PO BID cholecalciferol (vitamin D3) [Vitamin D3] 5,000 unit PO QAM diazepam [Valium] 5 mg PO HS docusate sodium [Colace] 100 mg PO QPM doxazosin 1 mg PO QDL flecainide 100 mg PO Q12H folic acid 1 mg PO QAM levothyroxine [Synthroid] 75 mcg PO 6XWK melatonin 3 mg PO HS metoprolol succinate 25 mg PO QPM potassium chloride [Klor-Con] 20 meq PO QAM rosuvastatin [Crestor] 10 mg PO HS sennosides [senna] 2 mg PO HS sumatriptan succinate [Imitrex] 50 mg PO UD PRN thiamine HCl (vitamin B1) [Vitamin B-1] 250 mg PO QAM gabapentin 100 mg capsule 100 mg PO HS carboxymethylcell-hypromellose [GenTeal Gel] 1 drp OPHTHALMIC (EYE) BID PRN denosumab [Prolia] 60 mg SUBCUT Q6M minoxidil 1 ml TOPICAL UD Continue as directed denosumab [Prolia] 60 mg SUBCUT Q6M levothyroxine [Synthroid] 75 mcg PO 6XWK ASK your prescriber and surgeon Jakafi 10 mg PO BID STOP taking 24 hours before surgery minoxidil 1 ml TOPICAL UD DO NOT take the morning of surgery biotin 5 mg PO QAM bumetanide 0.25 mg PO BID cholecalciferol (vitamin D3) [Vitamin D3] 5,000 unit PO QAM folic acid 1 mg PO QAM potassium chloride [Klor-Con] 20 meq PO QAM thiamine HCl (vitamin B1) [Vitamin B-1] 250 mg PO QAM Take morning of surgery With a small sip of water, OTHERWISE NOTHING TO EAT OR DRINK AFTER MIDNIGHT: GenTeal Tears Mild 1 drp OPHTHALMIC (EYE) BID PRN (if needed) Restasis 1 drp OPHTHALMIC (EYE) Q12H acetaminophen [Tylenol Extra Strength] 500 mg PO Q6H PRN (okay to take up to 4 hours prior to surgery if needed) doxazosin 1 mg PO QDL flecainide 100 mg PO Q12H sumatriptan succinate [Imitrex] 50 mg PO UD PRN (if needed) carboxymethylcell-hypromellose [GenTeal Gel] 1 drp OPHTHALMIC (EYE) BID PRN (if needed) Take evening before surgery GenTeal Tears Mild 1 drp OPHTHALMIC (EYE) BID PRN (if needed) Restasis 1 drp OPHTHALMIC (EYE) Q12H Tradjenta 5 mg PO QPM acetaminophen [Tylenol Extra Strength] 500 mg PO Q6H PRN (if needed) bisacodyl [Dulcolax (bisacodyl)] 5 mg PO HS PRN (if needed) bumetanide 0.25 mg PO BID diazepam [Valium] 5 mg PO HS docusate sodium [Colace] 100 mg PO QPM flecainide 100 mg PO Q12H melatonin 3 mg PO HS metoprolol succinate 25 mg PO QPM rosuvastatin [Crestor] 10 mg PO HS sennosides [senna] 2 mg PO HS sumatriptan succinate [Imitrex] 50 mg PO UD PRN (if needed) gabapentin 100 mg capsule 100 mg PO HS carboxymethylcell-hypromellose [GenTeal Gel] 1 drp OPHTHALMIC (EYE) BID PRN (if needed) Other Notes If you have any questions please call us at [phone] or [phone] or [phone] or [phone]
--- NOTE | 2019-11-14 11:15 | Anesthesiology Consultation ---
Date of Service November 14, 2019 Assessment & Plan (1) Encounter for pre-operative examination: COVID Status: As of 11/13 assessment, patient denies travel to endemic area, known exposure/sick contacts, or symptoms of COVID19. Patient instructed that they and their household members must follow strict social distancing guidelines, wear a mask in public and avoid travel for 14 days prior to surgery. Preoperative COVID19 testing to be completed prior to surgery per surgeon's a rrangements. Patient made aware to self-isolate as much as possible between COVID testing and surgery. CARDIOLOGY CLEARANCE 11/05/19: "She is planning for possible knee surgery next month. She has been stable from a cardiac standpoint. Provided she has no change in symptoms before then, she may proceed with the operation without additional cardiac testing. Pacemaker should not be affected by this operation (below umbilicus) therefore no need to place a magnet during the operation or routinely interrogate the device postoperatively." POSSIBLE DIFFICULT SPINAL. PATIENT HAD LUMBAR DISCECTOMY+FUSION L4-L5 ON 07/15/19. PATIENT TO HAVE IRRADIATED PLATELETS TRANSFUSED AM DOS. Blood bank notified. Surgeon has ordered. Will notify OR to schedule patient to arrive an extra 2 hours early per blood bank request. VERSED ALLERGY. NOTE: Patient is a retired OR nurse. Chart Review Chart Review: Acceptable Risk for Surgery and Patient seen in Pre Admission Testing Teaching & Discussion Instructed NPO after midnight before surgery, except medications with 15 cc of water. Medication instructions provided according to the PAT guidelines. Per patient, instructed by provider to hold Jakafi x 7 days prior to surgery. History Surgery Operation Date: 12/06/19 08:50 Proposed Procedures p Right Total Knee Arthroplasty - Fazal Bay DO Height/Weight Height: 5 ft 3 in Weight: 58.7 kg Allergies Allergy/AdvReac Type Severity Reaction Status Date / Time aspartame AdvReac Unknown ARTIFICIAL Verified 11/12/19 10:51 SWEETENERS-MIGRAINES cheese AdvReac Unknown PARMESAN Verified 11/12/19 10:51 CHEESE-MIGRAINES doxycycline AdvReac Unknown Photosensit Verified 11/12/19 10:51 ivity lactose AdvReac Unknown MILK Verified 11/12/19 10:51 PRODUCTS-GI UPSET midazolam [From Versed] AdvReac Unknown UNCONTROLLABLE Verified 11/12/19 10:51 EYE MOVEMENT monosodium glutamate AdvReac Unknown MIGRAINES Verified 11/12/19 10:51 Yeast AdvReac Unknown AUTOLYSED-M Verified 11/12/19 10:51 IGRAINES Medications Home Medications Medication Instructions Recorded Confirmed Last Taken GenTeal Tears Mild 1 drp OPHTHALMIC (EYE) BID PRN 09/11/18 11/12/19 11/02/18 06:15 Jakafi 10 mg PO BID 09/11/18 11/12/19 10/26/18 Restasis 1 drp OPHTHALMIC (EYE) Q12H 09/11/18 11/12/19 11/02/18 06:15 Tradjenta 5 mg PO QPM 09/11/18 11/12/19 11/01/18 18:15 acetaminophen [Tylenol Extra 500 mg PO Q6H PRN 09/11/18 11/12/19 11/02/18 06:15 Strength] biotin 5 mg PO QAM 09/11/18 11/12/19 11/01/18 08:00 bisacodyl [Dulcolax (bisacodyl)] 5 mg PO HS PRN 09/11/18 11/12/19 10/31/18 18:00 bumetanide 0.25 mg PO BID 09/11/18 11/12/19 11/01/18 18:00 cholecalciferol (vitamin D3) 5,000 unit PO QAM 09/11/18 11/12/19 11/01/18 08:00 [Vitamin D3] diazepam [Valium] 5 mg PO HS 09/11/18 11/12/19 11/01/18 22:00 docusate sodium [Colace] 100 mg PO QPM 09/11/18 11/12/19 11/01/18 18:00 doxazosin 1 mg PO QDL 09/11/18 11/12/19 11/01/18 18:00 flecainide 100 mg PO Q12H 09/11/18 11/12/19 11/02/18 06:15 folic acid 1 mg PO QAM 09/11/18 11/12/19 11/01/18 08:00 levothyroxine [Synthroid] 75 mcg PO 6XWK 09/11/18 11/12/19 11/02/18 06:15 melatonin 3 mg PO HS 09/11/18 11/12/1911/01/19 22:00 metoprolol succinate 25 mg PO QPM 09/11/18 11/12/19 11/01/18 18:00 potassium chloride [Klor-Con] 20 meq PO QAM 09/11/18 11/12/19 11/01/18 08:15 rosuvastatin [Crestor] 10 mg PO HS 09/11/18 11/12/19 11/01/18 22:00 sennosides [senna] 2 mg PO HS 09/11/18 11/12/19 11/01/18 12:00 sumatriptan succinate [Imitrex] 50 mg PO UD PRN 09/11/18 11/12/19 Unknown thiamine HCl (vitamin B1) [Vitamin 250 mg PO QAM 09/11/18 11/12/19 11/01/18 08:00 B-1] gabapentin 100 mg capsule 100 mg PO HS 02/18/19 11/12/19 Unknown carboxymethylcell-hypromellose 1 drp OPHTHALMIC (EYE) BID PRN 11/12/19 11/12/19 Unknown [GenTeal Gel] denosumab [Prolia] 60 mg SUBCUT Q6M 11/12/19 11/12/19 Unknown minoxidil 1 ml TOPICAL UD 11/12/19 11/12/19 Unknown Past Medical History Medical History Atrial fibrillation HX A FIB/A FLUTTER. Has had unsuccessful cardioversion in the past, eventually pacemaker placed. Some episodes of afib seen on pacer checks. Not anticoagulated due to chronic thrombocytopenia/anemia. Carotid artery stenosis Per cardio office note 05/2018, LICA < 50%, DAILY OK on 2018 imaging. 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 Hypothyroidism THYROID NODULES CHECKED ANNUALLY Maxillary sinusitis, chronic Migraine Myelofibrosis X 20 YRS-F/U DR FABIOLA SOLOMON [facility] -- has had over 90 units transfused. Chronic thrombocytopenia, avg plts 74-93. Myocardial Infarction "OLD [place] seen on EKG in 2016" but no CAD seen on 2016 heart cath. Osteoarthritis Pacemaker Placed for a-fib, Medtronic. Most recent check 09/24/2019. Exercise / Class Metabolic Activity II 4-5 Yardwork/Stairs/Walk up hill (Does 14 steps daily at home many times, some WELSH if carrying something but otherwise OK, denies any CP) USes cane for stability. Past Surgical History Surgical History History of adenoidectomy History of augmentation of both breasts X 2 History of axillary surgery R/L BIOPSIES-USUALLY USES RIGHT ARM FOR BLOOD DRAWS History of bilateral tubal ligation LAPAROSCOPIC History of bone marrow biopsy X 14-2000 THRU 2014 History of cardiac cath 2015 NO BLOCKAGES-NO STENTS History of cardioversion For Afib. Unsuccessful. History of cataract surgery R/L History of colonoscopy History of herniorrhaphy History of hysterectomy WITH BSO/APPENDECTOMY History of incision and drainage PERIANAL ABSCESS History of lumbar spinal fusion June 2019; hardware present History of lumpectomy of right breast History of reverse total replacement of left shoulder joint (~10/2018) 11/02/2018 [facility] History of tonsillectomy History of tooth extraction History of vascular access device PORT L UPPER CHEST-REMAINS IN PLACE History of vein stripping Pacemaker IMPLANTED 2016 S/P transesophageal echocardiogram (SONIA) X 2-LAST ONE 03/2017 WITH ABLATION [facility] Past Anesthesia History No Hx of Anesthesia Complications and No Family Hx of Anesthesia Complications History of PONV No Hx of Motion Sickness and History of PONV (single episode 1983) Social History Smoking Status: Never smoker Do You Dip or Chew Tobacco: No Hx Alcohol Use: Yes Alcohol type: beer alcohol intake frequency: a few times a month Hx Substance Use: No Review of Systems Pt denies any recent chest pain, shortness of breath, palpitations, cough, fever, URI, or uncontrolled acid reflux. +Chronic rhinitis/sinus drainage Physical Exam Vital Signs BP: 154/75 P: 60bpm SPO2: 98% RA T: 98.0 F R: 16 ENMT Mouth: + dentures (partial upper and lower) and + dental restorations (several caps, including upper incisor); no chipped teeth and no loose teeth Thyromental Distance: > or= 3.5 Finger Breadths Mallampati Class: II Neck normal visual inspection and + limited neck extension Respiratory normal respiratory effort Auscultation: lungs clear to auscultation bilaterally Cardiovascular Rate/Rhythm: regular rate and regular rhythm Heart Sounds: no murmur Extremities: no edema Testing Laboratory Results 11/14/19 11:35 11/14/19 11:35 PT 10.3 Seconds (9.0-12.0) 11/14/19 11:35 INR 1.0 (0.9-1.1) 11/14/19 11:35 APTT 24.8 Seconds (21.0-31.0) 11/14/19 11:35 Hemoglobin A1c 5.4 % (4.5-5.6) 11/14/19 11:35 Blood Type A Negative 11/14/19 11:35 Antibody Screen POSITIVE A 11/14/19 11:35 *Surgeon's office flagged re: low WBC and HGB. They are already aware of h/o thrombocytopenia and planning for platelet tsf AM DOS. Anemia appears to be around baseline. *Cr. c/w stage III CKD. *Spoke to blood bank re: + antibodies. No further workup needed prior to surgery, if needed pt will be given Rh- blood. Electrocardiogram Date: 11/05/19 Paced rhythm at 72 bpm. Chest X-Ray Date: 07/12/19 Stable mild cardiomegaly, dual lead pacer in place. Port remains in place. No active pulmonary or pleural process. Echocardiogram Date: 07/12/19 EF: 60% Normal LV size. LV has normal systolic function. Normal right ventricular size and function. Mild mitral regurgitation with mitral annular calcification. The left atrium is severely enlarged. The right atrium is mildly enlarged. Diastolic function could not be assessed due to mitral annular calcification. Catheters consistent with dual-chamber pacemaker leads seen in the right ventricle and right atrium. As compared to 02/24/2016 there is no significant change. Stress Test Date: 02/16/18 Cardiac Catheterization Date: 02/24/16 No significant disease noted. Other Testing Pacemaker Interrogation 09/26/19 Model: Medtronic Implantation date: 02/23/16 Battery/Longevity: 2.83V/5.5yrs Mode: AAIR/DDDR Pacin.5% RA, < 1% GRAIN LOADER Events/episodes: 0
[2019-11-14 12:57] LABS: Hematocrit (blood only) 29.6 % (37-47); Hemoglobin 9.3 g/dL (12.0-16.0); Mean Corpuscular Hemoglobin 32.7 pg (25-34); Mean Corpuscular Hgb Conc 31.4 g/dL (32-36); Mean Corpuscular Volume 104.2 fL (80-100); Mean Platelet Volume 12.2 fL (7.4-10.4); Platelet Count 85 K/uL (130-400); RDW Coefficient of Variation 15.6 % (11.5-14.5); RDW Standard Deviation 59.5 fL (36.4-46.3); Red Blood Count 2.84 M/uL (4.2-5.4); White Blood Count 2.02 K/uL (4.8-10.8)
[2019-11-14 13:04] LABS: Partial Thromboplastin Ratio 0.9; Partial Thromboplastin Time 24.8 Seconds (21.0-31.0); Prothrombin Time 10.3 Seconds (9.0-12.0)
[2019-11-14 13:05] LABS: BUN Creatinine Ratio 13.2 (10-20); Calcium 9.4 mg/dl (8.5-10.1); Est GFR (African American) 40.9; Est GFR (Non-African American) 35.3; Potassium 4.5 mmol/L (3.5-5.1)
[2019-11-14 13:11] LABS: Estimated Average Glucose 108 mg/dl; Hemoglobin A1C 5.4 % (4.5-5.6)
[2019-11-14 13:14] LABS: Immature Granulocytes # (auto) 0.02 K/uL (0.00-0.02); Lymphocytes # (auto) 0.41 K/uL (1.2-3.4); Lymphocytes % (auto) 20.3 %; Monocytes % (auto) 9.9 %; Neutrophils # (auto) 1.39 K/uL (1.4-6.5); Neutrophils % (auto) 68.8 %
--- NOTE | 2019-12-05 14:37 | History & Physical Report ---
Date of Service December 05, 2019 Assessment & Plan (1) Osteoarthritis of right knee: We will proceed with a right total knee arthroplasty. Preoperatively she will require a sixpack of irradiated platelets. She has thrombocytopenia secondary to her myelofibrosis. After the surgery she will be admitted to the hospital for postop medical management. She plans to use home health up in [place] upon discharge. Present on Admission?: Yes History of Present Illness Chief Complaint: Primary osteoarthritis of the right knee Primary Care Provider: Elie Singleton Chanda is a pleasant 79-year-old female who is now 1 year status post post left reverse shoulder arthroplasty. She is doing very well with that. Unfortunately she is having a lot of pain in her right knee. X-rays and clinical examination have been diagnostic for advanced osteoarthritis of her right knee. She is failed years of conservative treatment including multiple injections. They are failing conservative treatment, she has elected to proceed with a right total knee arthroplasty. Allergies Allergy/AdvReac Type Severity Reaction Status Date / Time aspartame AdvReac Unknown ARTIFICIAL Verified 11/12/19 10:51 SWEETENERS-MIGRAINES cheese AdvReac Unknown PARMESAN Verified 11/12/19 10:51 CHEESE-MIGRAINES doxycycline AdvReac Unknown Photosensit Verified 11/12/19 10:51 ivity lactose AdvReac Unknown MILK Verified 11/12/19 10:51 PRODUCTS-GI UPSET midazolam [From Versed] AdvReac Unknown UNCONTROLLABLE Verified 11/12/19 10:51 EYE MOVEMENT monosodium glutamate AdvReac Unknown MIGRAINES Verified 11/12/19 10:51 Yeast AdvReac Unknown AUTOLYSED-M Verified 11/12/19 10:51 IGRAINES Home Medications Home Medications Medication Instructions Recorded Confirmed Type GenTeal Tears Mild 1 drp OPHTHALMIC (EYE) BID PRN 09/11/18 11/12/19 History Jakafi 10 mg PO BID 09/11/18 11/12/19 History Restasis 1 drp OPHTHALMIC (EYE) Q12H 09/11/18 11/12/19 History Tradjenta 5 mg PO QPM 09/11/18 11/12/19 History acetaminophen [Tylenol Extra 500 mg PO Q6H PRN 09/11/18 11/12/19 History Strength] biotin 5 mg PO QAM 09/11/18 11/12/19 History bisacodyl [Dulcolax (bisacodyl)] 5 mg PO HS PRN 09/11/18 11/12/19 History bumetanide 0.25 mg PO BID 09/11/18 11/12/19 History cholecalciferol (vitamin D3) 5,000 unit PO QAM 09/11/18 11/12/19 History [Vitamin D3] diazepam [Valium] 5 mg PO HS 09/11/18 11/12/19 History docusate sodium [Colace] 100 mg PO QPM 09/11/18 11/12/19 History doxazosin 1 mg PO QDL 09/11/18 11/12/19 History flecainide 100 mg PO Q12H 09/11/18 11/12/19 History folic acid 1 mg PO QAM 09/11/18 11/12/19 History levothyroxine [Synthroid] 75 mcg PO 6XWK 09/11/18 11/12/19 History melatonin 3 mg PO HS 09/11/18 11/12/19 History metoprolol succinate 25 mg PO QPM 09/11/18 11/12/19 History potassium chloride [Klor-Con] 20 meq PO QAM 09/11/18 11/12/19 History rosuvastatin [Crestor] 10 mg PO HS 09/11/18 11/12/19 History sennosides [senna] 2 mg PO HS 09/11/18 11/12/19 History sumatriptan succinate [Imitrex] 50 mg PO UD PRN 09/11/18 11/12/19 History thiamine HCl (vitamin B1) [Vitamin 250 mg PO QAM 09/11/18 11/12/19 History B-1] gabapentin 100 mg capsule 100 mg PO HS 02/18/19 11/12/19 History carboxymethylcell-hypromellose 1 drp OPHTHALMIC (EYE) BID PRN 11/12/19 11/12/19 History [GenTeal Gel] denosumab [Prolia] 60 mg SUBCUT Q6M 11/12/19 11/12/19 History minoxidil 1 ml TOPICAL UD 11/12/19 11/12/19 History Past Med/Surg History Medical History Atrial fibrillation HX A FIB/A FLUTTER. Has had unsuccessful cardioversion in the past, eventually pacemaker placed. Some episodes of afib seen on pacer checks. Not anticoagulated due to chronic thrombocytopenia/anemia. Carotid artery stenosis Per cardio office note 05/2018, LICA < 50%, DAILY OK on 2018 imaging. 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 Hypothyroidism THYROID NODULES CHECKED ANNUALLY Maxillary sinusitis, chronic Migraine Myelofibrosis X 20 YRS-F/U DR FABIOLA SOLOMON [facility] -- has had over 90 units transfused. Chronic thrombocytopenia, avg plts 74-93. Myocardial Infarction "OLD [place] seen on EKG in 2016" but no CAD seen on 2016 heart cath. Osteoarthritis Pacemaker Placed for a-fib, Medtronic. Most recent check 09/24/2019. Surgical History History of adenoidectomy History of augmentation of both breasts X 2 History of axillary surgery R/L BIOPSIES-USUALLY USES RIGHT ARM FOR BLOOD DRAWS History of bilateral tubal ligation LAPAROSCOPIC History of bone marrow biopsy X 14-2000 THRU 2014 History of cardiac cath 2016 NO BLOCKAGES-NO STENTS History of cardioversion For Afib. Unsuccessful. History of cataract surgery R/L History of colonoscopy History of herniorrhaphy History of hysterectomy WITH BSO/APPENDECTOMY History of incision and drainage PERIANAL ABSCESS History of lumbar spinal fusion June 2019; hardware present History of lumpectomy of right breast History of reverse total replacement of left shoulder joint (~10/2018) 11/02/2018 [facility] History of tonsillectomy History of tooth extraction History of vascular access device PORT L UPPER CHEST-REMAINS IN PLACE History of vein stripping Pacemaker IMPLANTED 2016 S/P transesophageal echocardiogram (SONIA) X 2-LAST ONE 03/2017 WITH ABLATION [facility] Social History Smoking Status: Never smoker Second Hand Exposure: No; Hx Alcohol Use: Yes Alcohol type: beer Hx Substance Use: No Preferred Language: Palestinian Communication Ability: Effective Care Transition Manager Required: No Beliefs That Will Affect Care: None Current Living Situation: Spouse Feels Safe at Home: Yes Assistive Devices: Brace/Splint/Immobilizer, Cane and Glasses Review of Systems Review of Systems: All systems reviewed & are unremarkable except as noted in HPI & below Physical Exam Constitutional: WD/WN, vitals as above Eyes: PERRL, conjunctivae normal, anicteric sclerae ENMT: external ear and nose normal, oropharynx normal Neck: trachea midline, no thyromegaly Respiratory: normal respiratory effort Cardiovascular: RRR, no murmur, no edema Gastrointestinal (Abdomen): normal bowel sounds, soft, nontender, no hepatosplenomegaly Musculoskeletal: On physical examination of the right knee there is a trace effusion. There is near full range of motion and no evidence of instability. There is significant tenderness palpation along the medial and lateral joint lines and over the distal femoral condyles. Psychiatric: A+Ox3, euthymic affect Results & Data Results & Data ([facility]) Diagnostic Findings Radiographs of the right knee demonstrate advanced osteoarthritis with joint space narrowing osteophyte formation and [id number] articulation. PG Care Time/CCT Total # of Minutes Spent Total Time Spent with Patient: Total time spent is greater than 50% in coordination of care (as documented) at patient's floor/unit and/or counseling patient: Coding Level of Care Code None Diagnoses Osteoarthritis of right knee M17.11
[2019-12-06] MEDS ORDERED: CEFAZOLIN 1000MG 1,000 MG/7.5 ML SYR IV SCH (06:00)
[2019-12-06] MEDS ORDERED: TRANEXAMIC ACID 1,000 MG **IV Pre-op IV SCH (06:00)
[2019-12-06] MEDS ORDERED: ACETAMINOPHEN 500 MG TAB PO SCH (06:00)
[2019-12-06] MEDS ORDERED: dexAMETHasone 4 MG TAB PO SCH (06:00)
[2019-12-06] MEDS ORDERED: ROPIVACAINE 0.5% HCL/PF 150 MG, BUPIVACAINE 0.5% MPF 30 ML, EPINEPHrine 30MG/30ML (OR U... INSTIL SCH (06:00)
[2019-12-06] MEDS ORDERED: FAMOTIDINE 20 MG TAB PO SCH (06:00)
[2019-12-06] MEDS ORDERED: TRANEXAMIC ACID 1,000 MG **IV Intra-op IV SCH (06:00)
[2019-12-06] MEDS ORDERED: GABAPENTIN 300 MG CAP PO SCH (06:00)
[2019-12-06] MEDS ORDERED: LR 60ML/HR IV SCH (06:00)
[2019-12-06] MEDS ORDERED: LR 500ML BOLUS, THEN 15ML/HR IV SCH (06:00)
--- NOTE | 2019-12-06 06:30 | History & Physical Bridge Note ---
Date of Service December 06, 2019 History & Physical Bridge Note I have examined the patient, reviewed the History & Physical and in the interval since the performance of the History & Physical I have noted the following changes of clinical significance: no changes noted
[2019-12-06] MEDS ORDERED: BUPIVACAINE 0.5 % 5 MG/1 ML PF 10ML VIAL ONE (06:33)
[2019-12-06] MEDS ORDERED: PROPOFOL IV EMULSION 10 MG/ML 20 ML VIAL IV ONE (06:36)
[2019-12-06] MEDS ORDERED: LIDOCAINE HCL 2% 2 ML VIAL/AMP(20MG/ML) INFIL ONE (06:36)
[2019-12-06] MEDS ORDERED: MIDAZOLAM HCL 1 MG/ML 2ML VIAL ONE (06:37)
[2019-12-06] MEDS ORDERED: fentaNYL citrate 100 MCG/2 ML VIAL ONE ×2 (06:37→08:33)
[2019-12-06] MEDS ORDERED: ePHEDrine sulfate 50 MG/ML AMP IV PRN (06:39)
[2019-12-06] MEDS ORDERED: ONDANSETRON INJ 2 MG/ML 2 ML VIAL IV PRN ×2 (06:39→10:46)
[2019-12-06] MEDS ORDERED: ATROPINE SULFATE 0.1 MG/ML 10ML SYR IV PRN (06:39)
[2019-12-06] MEDS ORDERED: ORTHO JOINT ANESTHETIC ONE (06:42)
[2019-12-06] MEDS ORDERED: ONDANSETRON INJ 2 MG/ML 2 ML VIAL ONE (07:47)
[2019-12-06] MEDS ORDERED: PHENYLEPHRINE 100MCG/ML 5ML SYR ONE (08:21)
--- NOTE | 2019-12-06 08:31 | Operative Report ---
PG Post Operative Report Pre & Post Diagnosis Operation Date: 12/06/19 12:30 Pre-Op Diagnosis: Right Knee Degnerative Joint Disease Post-Op Diagnosis: Right Knee Degnerative Joint Disease I identified the patient and participated in the time-out.: Yes Procedure Operation Date: 12/06/19 12:30 Actual Procedures p Right Total Knee Arthroplasty, Cemented(Right) - Fazal Bay DO Surgeon Fazal Bay DO Rest Room Attendant Fazal Wetzel PAC Estimated Blood Loss 10 Findings Consistent with Post-Op Diagnosis Specimens Right femoral and tibial bone Complications none Disposition Disposition: Recovery Room Indications Chanda is a pleasant 79-year-old female who presented my office with chronic increasing right knee pain. X-rays and clinical examination were diagnostic for advanced osteoarthritis of the right knee. After failing conservative treatment, she elected to proceed with a right total knee arthroplasty. Description of Procedure Implants used: I used a Emile Persona total knee arthroplasty system with a size 8 narrow femur, D tibia, 29 patella, and a size 11 medial congruent polyethylene bearing. All components were cemented in place with Palacos G cement. Chanda arrived [facility] for the above procedure. She was seen in the preoperative holding area and the operative extremity was identified and signed. She was given a preoperative antibiotic, and TXA. She was taken back to the operating room and laid on the table in supine position. She was given general anesthesia. The operative knee was then prepped and draped in sterile fashion. A timeout was done, and the patient and the operative extremity was properly identified. A midline incision was made directly over the patella. Dissection was taken down to the extensor mechanism. A subvastus arthrotomy was used. The medial retinaculum was released and the fat pad was mostly excised. The knee was flexed and the ACL, PCL, and meniscus were removed. A drill was sent down the center of the femoral canal followed by an intramedullary valerie. Off that valerie a distal femoral cutting block was placed. 9 mm was resected off the distal femur at 5 of valgus. A posterior referencing AP sizing guide was then placed on the distal femur. The femur measured to be a size 8 narrow. 2 drill holes were placed in 3 of external rotation. A 4-in-1 cutting block was then impacted into place. Anterior, posterior, and chamfer cuts were then made. The proximal tibia was then exposed. An external tibial alignment guide was placed. A tibial cut guide was then anchored in place and the proximal tibia was then resected. The posterior aspect of the knee was then opened up and any additional meniscus fragments and osteophytes were removed. The tibia measured to be a size D. The tibial plate was then placed in the appropriate rotation and the tibia was drilled and punched. Trial components were then placed. I used a size 11 medial congruent polyethylene insert. The knee was brought through a full range of motion and felt to be stable. The peg holes for the femoral component were then drilled. The patella was then everted and 9 mm was resected off the posterior aspect of the patella. The patella measured to be a size 29. 3 peg holes were then drilled. A trial patella was placed. The knee was once again brought through a full range of motion and felt to be stable. Trial components were then removed. The surrounding soft tissues were injected with 100 cc of an orthopedic pain control cocktail. All components were then cemented into place with Palacos G cement. The final polyethylene insert was then snapped into place. Once cement was dry the tourniquet was deflated. Hemostasis was obtained. A dilute betadyne lavage was then done for 3 minutes. The joint was then irrigated with normal saline solution. The subvastus arthrotomy was then closed with #1 Vicryl suture. The skin was closed with 2-0 Vicryl, 3-0V lock suture, and nikolay. A Silverlon and a soft compressive dressing were placed. She was then transferred to a hospital bed and taken to the postanesthesia care unit in stable condition. She tolerated the procedure well. Fazal Wetzel PA-C, was present for the entire procedure. He was critical for patient positioning, prepping, draping, retraction exposure, wound closure and application of sterile dressing. I attest to the content of the Intraoperative Record and any orders documented therein. Any exceptions are noted below.
[2019-12-06] MEDS: fentaNYL citrate 100 MCG/2 ML VIAL IV PRN ×6 (09:04→09:49)
--- NOTE | 2019-12-06 10:00 | XRay Report ---
XR knee RT 1 or 2V routine CLINICAL HISTORY: Postoperative evaluation. COMPARISON: Knee radiographs November 06, 2019. FINDINGS: Alignment of the total right knee arthroplasty is anatomic. There is no periprosthetic fra cture or unexpected radiopaque foreign body. There are skin nikolay. IMPRESSION: Expected findings following total right knee arthroplasty. ACT 112: Negative or not required by law. Electronically signed by: Lupillo Bernal M.D. 12/06/2019 9:59 AM
--- NOTE | 2019-12-06 10:09 | Anesthesiology Progress Note ---
Date of Service December 06, 2019 Anesthesia Post Procedure Vital Signs Vital Signs: Temp Pulse Pulse Pulse Resp BP BP 12/06/19 10:00 98.1 F 60 16 137/61 12/06/19 09:50 60 14 145/54 H 12/06/19 09:40 60 14 148/56 H 12/06/19 09:30 60 12 126/56 L 12/06/19 09:20 60 20 140/55 L 12/06/19 09:10 60 16 137/53 L 12/06/19 09:00 60 14 146/53 H 12/06/19 08:52 97.0 F L 60 14 131/58 L 12/06/19 07:25 97.2 F L 60 16 116/51 L 12/06/19 07:00 98.1 F 60 20 169/73 H 12/06/19 06:45 98.1 F 60 18 169/73 H 12/06/19 06:30 98.1 F 60 18 170/73 H 12/06/19 06:01 98.4 F 78 20 179/70 H Pulse Ox 12/06/19 10:00 100 12/06/19 09:50 100 12/06/19 09:40 100 12/06/19 09:30 100 12/06/19 09:20 98 12/06/19 09:10 96 12/06/19 09:00 100 12/06/19 08:52 100 12/06/19 07:25 100 12/06/19 07:00 100 12/06/19 06:45 100 12/06/19 06:30 100 12/06/19 06:01 99 Pain Intensity Right Knee: Pain Intensity: 4 Transfer of Care Handoff Completed per policy Notes Mental Status: alert / awake / arousable and participated in evaluation Patient Amnestic to Procedure: Yes Nausea / Vomiting: adequately controlled Pain: adequately controlled Airway Patency, RR, SpO2: stable & adequate BP & HR: stable & adequate Hydration State: stable & adequate Anesthetic Complications: no major complications apparent and Pt Satisfied with anesthetic care
[2019-12-06] MEDS ORDERED: SUMAtriptan succinate 50 MG TAB PO PRN (10:46)
[2019-12-06] MEDS ORDERED: METOCLOPRAMIDE HCL INJ 5 MG/ML 2 ML VIAL IV PRN (10:46)
[2019-12-06] MEDS ORDERED: MAGNESIUM HYDROXIDE SUSP 30 ML UDC PO PRN (10:46)
[2019-12-06] MEDS ORDERED: bisacodyL 10 MG SUPP PR PRN (10:46)
[2019-12-06] MEDS ORDERED: LEVOTHYROXINE SODIUM 75 MCG TABLET PO SCH (10:46)
[2019-12-06] MEDS ORDERED: HYDROmorphone INJ 0.5 MG/0.5 ML SYR IV PRN (10:46)
[2019-12-06] MEDS ORDERED: NALOXONE HCL 0.4 MG/1 ML VIAL/CARP IV PRN (10:46)
[2019-12-06] MEDS ORDERED: PHARMACY GLYCEMIC MGMT CONSULT PRN (11:06)
[2019-12-06] MEDS ORDERED: NovoLIN-N (NPH) PER UNIT CHARGE SQ ONE (11:30)
--- NOTE | 2019-12-06 11:33 | Pharmacy Report ---
Glycemic Control Consultation - Date of Service December 06, 2019 - Scope Scope: Glycemic Pharmacist consulted for glycemic control and to write orders per [facility] inpatient glycemic control protocol. - Objective Weight: 58.74 kg Accuchecks BSG (last 24hrs): 12/06/19 12/06/19 05:39 09:00 POC Glucose 132 H 135 H HbA1c: Hemoglobin A1c 5.4 % (4.5-5.6) 11/14/19 11:35 - Recent Pertinent Medications Outpatient Anti-diabetic Regimen: * Linagliptin * A1c = 5.4 % on 11/14/19 Risk Factors for Insulin Resistance: * Steroids: dexamethasone 8 mg po preop * Recent Surgery: POD 0 s/p TKA * Diet: T2DM - Assessment & Plan Assessment & Plan: ASSESSMENT: * 79 yo F with T2DM and good outpatient control on a single oral agent admitted with TKA * Steroids administered intra-operatively will likely cause short-term increased insulin resistance - will utilize basal/bolus. Selected NPH for basal as effects will not be as pronounced overnight. Anticipate that patient will only require this one dose today, and possibly another dose tomorrow AM. No further basal insulin anticipated after that time. * Will initiate Novolog at slightly tighter than weight-based moderate stress estimate given steroids PLAN FOR INPATIENT GLYCEMIC CONTROL: * Holding outpatient oral diabetes medications - anticipate ability to resume linagliptin in about 48 hours * Basal insulin * NPH 10 units SQ x1 now. May require one additional dose tomorrow AM. * Bolus insulin * NovoLog per scale ACHS or Q6hrs while NPO * Goal Range: Low 110 mg/dL - High 140 mg/dL * Correction Factor: 35 mg/dL/unit * Nutritional / Prandial insulin per carb ratio of 1 unit per 12 grams CHO consumed * Please note that the plan above was derived based on current level of insulin resistance and hospital stress. These recommendations are appropriate for inpatient admission only. Plan of care upon discharge will need to be reassessed to avoid potential outpatient hypo/hyperglycemia. Thank you.
[2019-12-06] MEDS: SODIUM CHLORIDE 0.9% 1000ML 1,000 ML IV SCH ×2 (11:34→21:24)
[2019-12-06] MEDS ORDERED: ARTIFICIAL TEARS OP PRN (11:37)
[2019-12-06] MEDS: BUMETANIDE 1 MG TAB PO SCH ×2 (12:23→21:25)
[2019-12-06] MEDS: FLECAINIDE ACETATE 100 MG TABLET PO SCH ×2 (12:23→21:25)
[2019-12-06] MEDS: THIAMINE HCL 50 MG TABLET PO SCH (12:24)
[2019-12-06] MEDS: DOXAZOSIN MESYLATE 1 MG TAB PO SCH (12:26)
[2019-12-06] MEDS: MULTIVITAMIN TAB PO SCH (12:27)
[2019-12-06] MEDS: DOCUSATE SODIUM 100 MG CAP PO SCH ×2 (12:31→21:26)
[2019-12-06] MEDS: FOLIC ACID 1 MG TAB PO SCH (12:32)
[2019-12-06] MEDS: POTASSIUM CHLORIDE PWD 20 MEQ PACK PO SCH (12:32)
[2019-12-06] MEDS: ASPIRIN 81 MG ECTAB PO SCH ×2 (12:32→20:43)
[2019-12-06] MEDS: KETOROLAC TROMETHAMINE 15 MG/ML VIAL IV SCH ×2 (12:58→17:48)
[2019-12-06] MEDS: INSULIN ASPART 100 UNITS/ML 3 ML PEN SC SCH ×3 (13:02→20:44)
[2019-12-06] MEDS: ACETAMINOPHEN 500 MG TAB PO SCH ×2 (13:03→21:24)
[2019-12-06] MEDS: CEFAZOLIN 2000MG 2,000 MG/15 ML SYR IV SCH ×2 (16:25→21:27)
[2019-12-06] MEDS: RUXOLITINIB PHOSPHATE PO SCH (16:26)
[2019-12-06] MEDS: RESTASIS: ORDER AWAITING ACTION SCH (17:16)
[2019-12-06] MEDS: ROSUVASTATIN CALCIUM 10 MG TAB PO SCH (20:41)
[2019-12-06] MEDS: METOPROLOL SUCC 25MG EXT REL TAB PO SCH (20:46)
[2019-12-06] MEDS ORDERED: DOCUSATE SODIUM 100 MG CAP PO SCH (21:00)
[2019-12-06] MEDS ORDERED: SENNA 8.6 MG TAB PO SCH (21:00)
[2019-12-06] MEDS: GABAPENTIN 100 MG CAP PO SCH (21:25)
[2019-12-06] MEDS: SENNA 8.6 MG TAB PO SCH (21:26)
[2019-12-07] MEDS: RESTASIS: ORDER AWAITING ACTION SCH ×3 (00:06→15:29)
[2019-12-07] MEDS: KETOROLAC TROMETHAMINE 15 MG/ML VIAL IV SCH ×5 (01:54→22:55)
[2019-12-07] MEDS ORDERED: LEVOTHYROXINE SODIUM 75 MCG TABLET PO SCH (06:30)
[2019-12-07] MEDS: ACETAMINOPHEN 500 MG TAB PO SCH ×3 (06:58→22:54)
[2019-12-07 07:02] LABS: Hematocrit (blood only) 22.2 % (37-47); Hemoglobin 7.1 g/dL (12.0-16.0); Mean Corpuscular Hemoglobin 33.5 pg (25-34); Mean Corpuscular Volume 104.7 fL (80-100); RDW Coefficient of Variation 14.3 % (11.5-14.5); RDW Standard Deviation 54.1 fL (36.4-46.3); Red Blood Count 2.12 M/uL (4.2-5.4); White Blood Count 3.63 K/uL (4.8-10.8)
[2019-12-07 07:08] LABS: Mean Platelet Volume 10.1 fL (7.4-10.4); Platelet Count 68 K/uL (130-400)
[2019-12-07 07:30] LABS: BUN Creatinine Ratio 13.9 (10-20); Calcium 7.7 mg/dl (8.5-10.1); Est GFR (African American) 46.4; Potassium 3.9 mmol/L (3.5-5.1)
[2019-12-07] MEDS ORDERED: SODIUM CHLORIDE 0.9% 250 ML IV PRN ×2 (07:59→08:00)
--- NOTE | 2019-12-07 08:04 | Orthopedic Progress Note ---
Date of Service December 07, 2019 Assessment & Plan (1) Status post right knee replacement: Overall she is doing fairly well. She does have a medical history of myelofibrosis. She has had 94 units of packed red blood cells transfused over her lifetime. 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 She received a sixpack of platelets preoperatively. Her H&H is now 7 and 22. At this level she says that she requires 2 units of packed red blood cells. Think that is reasonable given her medical diagnosis. We will proceed with 2 units of irradiated packed red blood cells today. We will recheck an H&H tomorrow morning. If everything looks good she will likely be discharged home. She is currently on aspirin 81 mg twice a day for DVT prophylaxis. Present on Admission?: No Admission and Anticipated Discharge Date Admission Date: December 06, 2019 Rosa Armas was seen and examined at bedside this morning. Overall she is doing very well. She does not seem to be having too much pain in her knee. She has been up and ambulating to the bathroom. She has no nausea and no feelings of fatigue. She has no other complaints. Physical Exam Musculoskeletal: On physical examination of the right knee, the dressing is clean and dry. Her right leg is out in full extension. She has active dorsiflexion plantarflexion of her right ankle. Results & Data ([facility]) Vital Signs (Past 12 Hours) Vital Signs Temp Pulse Resp BP BP Pulse Ox 12/07/19 07:08 36.5 C 67 16 152/73 H 95 12/07/19 03:55 36.5 C 67 16 111/50 L 96 12/06/19 23:00 36.6 C 61 16 110/48 L 98 Laboratory Results H & H 11/14/19 12/07/19 Range/Units 11:35 06:26 Hgb 9.3 L 7.1 L (12.0-16.0) g/dL Hct 29.6 L 22.2 L (37-47) % Coagulation 11/14/19 Range/Units 11:35 INR 1.0 (0.9-1.1) Diagnostic Findings Postoperative x-rays of the right knee show the prosthesis to be in anatomic alignment without any evidence of fracture, dislocation, or loosening. PG Care Time/CCT Total # of Minutes Spent Total Time Spent with Patient: Total time spent is greater than 50% in coordination of care (as documented) at patient's floor/unit and/or counseling patient: Coding Level of Care Code None Diagnoses Status post right knee replacement Z96.651
[2019-12-07] MEDS: INSULIN ASPART 100 UNITS/ML 3 ML PEN SC SCH ×4 (09:06→23:06)
[2019-12-07] MEDS: BUMETANIDE 1 MG TAB PO SCH ×2 (09:56→20:27)
[2019-12-07] MEDS: ASPIRIN 81 MG ECTAB PO SCH ×2 (09:56→20:30)
[2019-12-07] MEDS: POTASSIUM CHLORIDE PWD 20 MEQ PACK PO SCH (09:56)
[2019-12-07] MEDS: RUXOLITINIB PHOSPHATE PO SCH ×2 (09:57→20:45)
[2019-12-07] MEDS: DOCUSATE SODIUM 100 MG CAP PO SCH ×2 (09:57→20:26)
[2019-12-07] MEDS: FLECAINIDE ACETATE 100 MG TABLET PO SCH ×2 (09:57→22:56)
[2019-12-07] MEDS: FOLIC ACID 1 MG TAB PO SCH (09:57)
[2019-12-07] MEDS: THIAMINE HCL 50 MG TABLET PO SCH (09:57)
[2019-12-07] MEDS: MULTIVITAMIN TAB PO SCH (09:57)
[2019-12-07] MEDS: DOXAZOSIN MESYLATE 1 MG TAB PO SCH (11:08)
[2019-12-07] MEDS: OXYCODONE HCL IR 5 MG TAB (IMMEDIATE RELEASE) PO PRN ×2 (11:08→21:07)
--- NOTE | 2019-12-07 13:55 | Pharmacy Report ---
Glycemic Control Progress Note - Date of Service December 07, 2019 - Scope Glycemic Pharmacist consulted for glycemic control to write orders per [facility] inpatient glycemic control protocol. - Objective Accuchecks BSG(last 24 hours):: 12/06/19 12/06/19 12/07/19 17:28 20:39 06:26 Glucose 86 POC Glucose 116 H 199 H 12/07/19 12/07/19 08:24 11:59 Glucose POC Glucose 108 H 96 HbA1c:: Hemoglobin A1c 5.4 % (4.5-5.6) 11/14/19 11:35 - Recent Pertinent Medications The patient is currently receiving: * Basal insulin: NPH 10 units SQ x 1 * Correctional Insulin: Novolog Correction per scale ACHS Goal Range: Low 110 mg/dL - High 140 mg/dL Correction Factor: 35 mg/dL/unit * Prandial insulin: Per carb ratio of 1 unit per 12 grams CHO consumed - Outpatient Anti-Diabetic Meds Tradjenta 5 mg daily - Assessment & Plan ASSESSMENT: * See progress note from 12/06/2019 for more background info, in short: * Pt receiving SQ basal bolus insulin regimen for hyperglycemia secondary to baseline DM (outpatient regimen on hold). Patient is s/p R TKA. * Patient is currently receiving an average of 16 units of insulin per day * 10 units of basal insulin * 6 units of prandial/correctional insulin * BSGs ranging 116 - 199 mg/dl over the past 24hrs * Changes needed to insulin regimen: * AM Fasting BSG = 108 mg/dl. This is in goal range for patient based on inpatient targets and co-morbidities. Will give no additional basal insulin. * Post-prandial BSGs were elevated yesterday but trended downwards at lunch. Loosen to weight-based stress of 2 Novolog. * Total daily dose = <10 units. * Additional notes / comments: Continue to hold Tradjenta as non-formulary PLAN FOR INPATIENT GLYCEMIC CONTROL: * LOOSENING correction factor to 40 mg/dl/unit * LOOSENING carb ratio to 1 unit per 12 grams CHO consumed * Continuing goal range of Low 110 mg/dL - High 140 mg/dL RECOMMENDATIONS FOR DISCHARGE: * Patient's HbA1C is well controlled. Continue current home regimen. * goal HbA1C < 7% * current HbA1C 5.4% Thank you.
[2019-12-07] MEDS: ROSUVASTATIN CALCIUM 10 MG TAB PO SCH (20:30)
[2019-12-07] MEDS: GABAPENTIN 100 MG CAP PO SCH (20:32)
[2019-12-07] MEDS: SENNA 8.6 MG TAB PO SCH (20:33)
[2019-12-07] MEDS: METOPROLOL SUCC 25MG EXT REL TAB PO SCH (20:48)
[2019-12-08] MEDS: OXYCODONE HCL IR 5 MG TAB (IMMEDIATE RELEASE) PO PRN ×2 (03:51→10:35)
[2019-12-08] MEDS: RESTASIS: ORDER AWAITING ACTION SCH ×2 (05:35→09:56)
[2019-12-08] MEDS: KETOROLAC TROMETHAMINE 15 MG/ML VIAL IV SCH (06:37)
[2019-12-08] MEDS: ACETAMINOPHEN 500 MG TAB PO SCH (06:38)
[2019-12-08 07:56] LABS: Hemoglobin 9.5 g/dL (12.0-16.0)
--- NOTE | 2019-12-08 08:14 | Orthopedic Progress Note ---
Date of Service December 08, 2019 Assessment & Plan (1) Status post right knee replacement: Overall she is doing very well. She is not having too much pain in the right knee. She will be seen by physical therapy today for ambulation and range of motion exercises. Her H&H was normalized today. She can be discharged home later today. She will follow-up with orthopedics in 2 weeks. Present on Admission?: No Admission and Anticipated Discharge Date Admission Date: December 06, 2019 Rosa Armas was seen and examined at bedside this morning. Overall she is feeling very good. She is not having too much pain in the right knee. She has been up and ambulating with a walker. She has no complaints. Physical Exam Musculoskeletal: On physical examination of the right knee, the Silverlon dressing has some bloody drainage but there is no leaking. Her knee is out in full extension. She has active dorsiflexion and plantarflexion of the right ankle. Results & Data ([facility]) Vital Signs (Past 12 Hours) Vital Signs Temp Pulse Pulse Resp BP BP Pulse Ox 12/08/19 08:04 36.7 C 69 16 162/72 H 96 12/07/19 23:09 36.9 C 64 16 165/68 H 94 12/07/19 20:53 37.0 C 61 61 18 134/55 L 95 PG Care Time/CCT Total # of Minutes Spent Total Time Spent with Patient: Total time spent is greater than 50% in coordination of care (as documented) at patient's floor/unit and/or counseling patient: Coding Level of Care Code None Diagnoses Status post right knee replacement Z96.651
--- NOTE | 2019-12-08 08:16 | Discharge Summary ---
Date of Service December 08, 2019 Admission HPI Per Admitting Provider Chanda is a pleasant 79-year-old female who is now 1 year status post post left reverse shoulder arthroplasty. She is doing very well with that. Unfortunately she is having a lot of pain in her right knee. X-rays and clinical examination have been diagnostic for advanced osteoarthritis of her right knee. She is failed years of conservative treatment including multiple injections. They are failing conservative treatment, she has elected to proceed with a right total knee arthroplasty. Principal Diagnosis Right knee replacement Discharge Data Allergies Allergy/AdvReac Type Severity Reaction Status Date / Time aspartame AdvReac Unknown ARTIFICIAL Verified 12/06/19 05:39 SWEETENERS-MIGRAINES cheese AdvReac Unknown PARMESAN Verified 12/06/19 05:39 CHEESE-MIGRAINES doxycycline AdvReac Unknown Photosensit Verified 12/06/19 05:39 ivity lactose AdvReac Unknown MILK Verified 12/06/19 05:39 PRODUCTS-GI UPSET midazolam [From Versed] AdvReac Unknown UNCONTROLLABLE Verified 12/06/19 05:39 EYE MOVEMENT monosodium glutamate AdvReac Unknown MIGRAINES Verified 12/06/19 05:39 Yeast AdvReac Unknown AUTOLYSED-M Verified 12/06/19 05:39 IGRAINES Consultations 12/06/19 10:46 Consult Case Management - Discharge Planning Routine Procedures Performed Operation Date: 12/06/19 12:30 Actual Procedures p Right Total Knee Arthroplasty, Cemented(Right) - Fazal Bay DO Ordered Studies 12/06/19 05:00 US - OR guided needle placemen Routine Hospital Course (1) Status post right knee replacement: On December 06, 2019 Chanda arrived at [facility] and underwent a right knee replacement without complication. She does have a history of myelofibrosis and received a sixpack of platelets preoperatively. Postoperatively she was started on aspirin for DVT prophylaxis and transferred to the general orthopedic floors. Her hospital course was relatively uneventful. On postop day #1 her H&H was a little bit low, which was to be expected. She received 2 units of irradiated packed red blood cells. On postop day #2 she continued to do well. Her H&H has returned to her normal value. She was seen by physical therapy and was able to do ambulation and range of motion exercises. She was then discharged home. She will follow-up with orthopedics in 2 weeks. Total Time Total Time Spent Total Time Spent (In Minutes): 20 Discharge Plan Discharge Items Patient Disposition: Home - Home Health Services Reason For Visit: Right Knee Degnerative Joint Disease Discharge Diagnosis: Right knee replacement Activity: As commented below Non-emergency contact: Surgeon Call non-emergency contact if: your wound has increased redness and your wound has increased drainage Follow-up/Referrals: Elie Singleton DO [Primary Care Provider] - Diet: Regular Addtl Attending Provider Instructions: Activity and Therapy Recommendations: * If you are using [facility] then therapy will be provided at your home until they feel you have accomplished all of your goals. * If you are using [facility] then Physical Therapy will be provided until they feel you are ready to start Outpatient Physical Therapy. * If you are not using home therapy then Outpatient Physical Therapy should start about 3-5 days from your day of surgery. Therapy will last about 6-10 weeks * It is important not to put a pillow under your knee when you are relaxing or sleeping. It is just as important to make sure you are getting your knee perfectly straight as it is to regain your knee bend. * You were shown a series of exercises in the hospital. Do these exercises three times each day including the exercises you were shown in physical therapy. * Get up and walk several times each day. For the first four weeks, try not to stand or walk for more than one hour at a time. If you do stand or walk for more than one hour, you will not hurt anything, but your leg will likely swell. * As you feel comfortable, you may change from the walker or crutches to a cane and then to independent walking. Medications: * Narcotic You will likely be sent home from the hospital with a prescription for the narcotic pain medication that worked best throughout your stay. * Aspirin Most patients will be required to take Aspirin 81mg twice a day for 6 weeks after surgery. This is obtained [id number] and a prescription is not necessary. * Other medications may be prescribed for specific circumstances. If you have any questions, please call the office at . * Resume previous home medications unless otherwise instructed TEDs/Elastic Stockings: The white elastic stockings help limit swelling and prevent blood clots from forming in your legs.~ The more you wear them, the more they work. Wear them for six weeks. Dressing Care: Leave the Silverlon dressing in place for 7 days. After 7 days you may remove the dressing. If the incision is not draining then you may leave the nikolay open to air. If there is a little bit of drainage or if the nikolay are getting stuck on your clothing then cover the incision with a dry dressing. The nikolay will be removed at your 2 week follow-up appointment. Showering: You may shower with the Silverlon dressing in place. Do not let the shower spray hit the dressing directly. Pat the Silverlon dressing dry. If the dressing becomes wet underneath, then simply remove the dressing. Keep the incision dry until you are 7 days out from the day of surgery. After 7 days you may remove the Silverlon dressing and shower with the nikolay exposed. Let soapy water run over the nikolay and pat them dry. Do not scrub or soak the incision. Things To Watch For: * Drainage from the incision site that occurs more than one week after your surgery. * Increased redness at the incision site. * Fever above 102 degrees Fahrenheit. * Unusual chest pain or shortness of breath. * Call [facility] at with any of the above problems Follow-Up Visit: Follow-up with Dr. Bay's PA (Fazal Wetzel) 2-3 weeks after your day of surgery. He will remove your nikolay and answer any questions. If you have any additional questions or concerns, Dr Bay is usually in the office at the same time and will be available An appointment was probably scheduled when you signed-up for surgery in the office. If you have any questions call Office Instructions: More detailed instructions as well as Frequently Asked Questions were provided in a folder by our office when you signed-up for surgery. Please review these instructions when you get home. If you have any further questions or concerns, please feel free to call the office at [phone] Pending Studies at Discharge: No Stand-Alone Forms: My [facility] [employer] [facility], Smoking Cessation Medications and DC Order Prescriptions: New oxycodone 5 mg tablet 5 mg PO Q6H PRN (Reason: pain) Qty: 30 RF: 0 Continued gabapentin 100 mg capsule 100 mg PO HS RF: 0 minoxidil 2 % Solution 1 ml TOPICAL UD RF: 0 GenTeal Gel 0.25-0.3 % Drops, Liquid Gel 1 drp OPHTHALMIC (EYE) BID PRN (Reason: Dry Eye(S)) RF: 0 Prolia 60 mg/mL Syringe 60 mg SUBCUT Q6M RF: 0 doxazosin 1 mg Tablet 1 mg PO QDL RF: 0 sumatriptan succinate [Imitrex] 50 mg Tablet 50 mg PO UD PRN (Reason: Migraine Headache) RF: 0 thiamine HCl (vitamin B1) [Vitamin B-1] 250 mg Tablet 250 mg PO QAM RF: 0 bumetanide 0.5 mg Tablet 0.25 mg PO BID RF: 0 flecainide 100 mg Tablet 100 mg PO Q12H RF: 0 docusate sodium [Colace] 100 mg Capsule 100 mg PO QPM RF: 0 folic acid 1 mg Tablet 1 mg PO QAM RF: 0 rosuvastatin [Crestor] 10 mg Tablet 10 mg PO HS RF: 0 biotin 5 mg Tablet 5 mg PO QAM RF: 0 cholecalciferol (vitamin D3) [Vitamin D3] 5,000 unit Tablet 5,000 unit PO QAM RF: 0 GenTeal Tears Mild 0.1-0.3 % Drops 1 drp OPHTHALMIC (EYE) BID PRN (Reason: Dry Eye(S)) RF: 0 Jakafi 10 mg Tablet 10 mg PO BID RF: 0 sennosides [senna] 8.6 mg Tablet 2 mg PO HS RF: 0 melatonin 3 mg Tablet 3 mg PO HS RF: 0 acetaminophen [Tylenol Extra Strength] 500 mg Tablet 500 mg PO Q6H PRN (Reason: Pain) RF: 0 levothyroxine [Synthroid] 75 mcg Tablet 75 mcg PO 6XWK RF: 0 potassium chloride [Klor-Con] 20 mEq Packet 20 meq PO QAM RF: 0 bisacodyl [Dulcolax (bisacodyl)] 5 mg Tablet,Delayed Release (Dr/Ec) 5 mg PO HS PRN (Reason: Constipation) RF: 0 Restasis 0.05 % Dropperette 1 drp OPHTHALMIC (EYE) Q12H RF: 0 metoprolol succinate 25 mg Capsule,Sprinkle,Er 24hr 25 mg PO QPM RF: 0 diazepam [Valium] 5 mg Tablet 5 mg PO HS RF: 0 Tradjenta 5 mg Tablet 5 mg PO QPM RF: 0 Discharge Orders: Discharge Order (Routine); Ordered 12/08/19 Ordered By: Fazal Bay Admission Data Admit Date/Time: 12/06/19 08:48 Attending Provider: Fazal Bay Admit Provider: Fazal Bay Primary Care Provider: Elie Singleton Other Interventions: Discharge Summary Assessment (RN) Last Done: 12/06/19 17:17 Coding Level of Care Code D/C Day Management <30 mins Diagnoses Status post right knee replacement Z96.651
[2019-12-08] MEDS: INSULIN ASPART 100 UNITS/ML 3 ML PEN SC SCH (08:38)
[2019-12-08] MEDS: RUXOLITINIB PHOSPHATE PO SCH (09:55)
[2019-12-08] MEDS: BUMETANIDE 1 MG TAB PO SCH (09:56)
[2019-12-08] MEDS: ASPIRIN 81 MG ECTAB PO SCH (09:56)
[2019-12-08] MEDS: DOCUSATE SODIUM 100 MG CAP PO SCH (09:56)
[2019-12-08] MEDS: MULTIVITAMIN TAB PO SCH (09:57)
[2019-12-08] MEDS: POTASSIUM CHLORIDE PWD 20 MEQ PACK PO SCH (09:57)
[2019-12-08] MEDS: FLECAINIDE ACETATE 100 MG TABLET PO SCH (09:57)
[2019-12-08] MEDS: FOLIC ACID 1 MG TAB PO SCH (09:57)
[2019-12-08] MEDS: DOXAZOSIN MESYLATE 1 MG TAB PO SCH (09:57)
[2019-12-08] MEDS: THIAMINE HCL 50 MG TABLET PO SCH (09:57)
== END 2019-12-08 11:20 | disposition home health service (06) ==
LOC: ASU 05:03 → 3W 05:03

== ENCOUNTER 2020-06-19 09:51 | Observation (INO) ==
--- NOTE | 2020-05-25 12:13 | PAT Medication Instructions ---
Medication Instructions Date of Service May 25, 2020 Home Medications Medication Instructions Recorded oxycodone 5 mg PO Q6H PRN #30 tab 12/08/19 GenTeal Tears Mild 1 drp OPHTHALMIC (EYE) BID PRN Jakafi 10 mg PO BID Restasis 1 drp OPHTHALMIC (EYE) Q12H acetaminophen [Tylenol Extra Strength] 500 mg PO Q6H PRN biotin 5 mg PO QAM bisacodyl [Dulcolax (bisacodyl)] 5 mg PO HS PRN bumetanide 0.25 mg PO BID cholecalciferol (vitamin D3) [Vitamin D3] 5,000 unit PO QAM diazepam [Valium] 5 mg PO HS docusate sodium [Colace] 100 mg PO BID doxazosin 1 mg PO QDL flecainide 100 mg PO Q12H folic acid 1 mg PO QAM levothyroxine [Synthroid] 75 mcg PO 6XWK melatonin 3 mg PO HS metoprolol succinate 25 mg PO QPM potassium chloride [Klor-Con] 20 meq PO QAM rosuvastatin [Crestor] 10 mg PO HS sennosides [senna] 17.2 mg PO HS sumatriptan succinate [Imitrex] 50 mg PO UD PRN thiamine HCl (vitamin B1) [Vitamin B-1] 300 mg PO QAM gabapentin 100 mg capsule 100 mg PO HS Prolia 60 mg SUBCUT Q6M minoxidil 1 ml TOPICAL UD oxycodone 5 mg PO Q6H PRN Continue as directed Prolia 60 mg SUBCUT Q6M ASK your prescriber and surgeon Jakafi 10 mg PO BID STOP taking 24 hours before surgery minoxidil 1 ml TOPICAL UD DO NOT take the morning of surgery biotin 5 mg PO QAM bumetanide 0.25 mg PO BID cholecalciferol (vitamin D3) [Vitamin D3] 5,000 unit PO QAM docusate sodium [Colace] 100 mg PO BID folic acid 1 mg PO QAM potassium chloride [Klor-Con] 20 meq PO QAM thiamine HCl (vitamin B1) [Vitamin B-1] 300 mg PO QAM Take morning of surgery With a small sip of water, OTHERWISE NOTHING TO EAT OR DRINK AFTER MIDNIGHT: GenTeal Tears Mild 1 drp OPHTHALMIC (EYE) BID PRN (if needed) Restasis 1 drp OPHTHALMIC (EYE) Q12H acetaminophen [Tylenol Extra Strength] 500 mg PO Q6H PRN (okay to take up to 4 hours prior to surgery if needed) doxazosin 1 mg PO QDL flecainide 100 mg PO Q12H levothyroxine [Synthroid] 75 mcg PO 6XWK (if scheduled to take day of surgery) sumatriptan succinate [Imitrex] 50 mg PO UD PRN (if needed) oxycodone 5 mg PO Q6H PRN (okay to take up to 4 hours prior to surgery if needed) Take evening before surgery GenTeal Tears Mild 1 drp OPHTHALMIC (EYE) BID PRN (if needed) Restasis 1 drp OPHTHALMIC (EYE) Q12H acetaminophen [Tylenol Extra Strength] 500 mg PO Q6H PRN (if needed) bisacodyl [Dulcolax (bisacodyl)] 5 mg PO HS PRN (if needed) bumetanide 0.25 mg PO BID diazepam [Valium] 5 mg PO HS docusate sodium [Colace] 100 mg PO BID flecainide 100 mg PO Q12H melatonin 3 mg PO HS metoprolol succinate 25 mg PO QPM rosuvastatin [Crestor] 10 mg PO HS sennosides [senna] 17.2 mg PO HS sumatriptan succinate [Imitrex] 50 mg PO UD PRN(if needed) gabapentin 100 mg capsule 100 mg PO HS oxycodone 5 mg PO Q6H PRN (if needed) Other Notes If you have any questions please call us at [phone] or [phone] or [phone] or [phone]
--- NOTE | 2020-05-27 12:17 | Anesthesiology Consultation ---
Date of Service May 27, 2020 Assessment & Plan (1) Encounter for pre-operative examination: - COVID screening: Per assessment on 05/27: Travel screen- resided in [place], [place] 03/20- 05/23 (via airplane). No further travel planned prior to surgery. Uses PPE. Follows COVID precaution guidelines. No known COVID-19 positive contacts or current COVID-19 related symptoms. Patient fully vaccinated. Surgeon arranging preop COVID testing (06/15; [facility]). Awaiting results. - Seen by cardiology (11/05/19): preop evaluation appt done prior to Right TKA (done 12/06/19 at [facility])- "She is planning for possible knee surgery next month. She has been stable from a cardiac standpoint. Provided she has no change in symptoms before then, she may proceed with the operation without additional cardiac testing. Pacemaker should not be affected by this operation (below umbilicus) therefore no need to place a magnet during the operation or routinely interrogate the device postoperatively." - S/P Left reverse TSA (11/02/18): Grade view 1, MAC#3, ETT 7.0 + PNB at [facility] - S/P Right TKA (12/06/19): Hx L4-L5 lumbar fusion + chronic thrombocytopenia > done under general anesthesia > LMA#4 + PNB at [facility] - Chronic anemia and thrombocytopenia (hx myelofibrosis): Chronic anemia (baseline hgb 9-10 range) and chronic thrombocytopenia (plts baseline 70s-90s). Findings at baseline. Carolina at surgeon's office made aware > She states that Dr. Bay's plan is for "super pack of irradiated platelets pre op and 2 units of PRBC irradiated post op with antibodies." Mary at blood bank made aware (she is requesting surgeon fax them the order- Carolina made aware/states she will arrange). Cara at OR made aware. Will check CBC AM DOS. Chart Review Chart Review: Acceptable Risk for Surgery (pending evaluation AM DOS) and Patient seen in Pre Admission Testing Teaching & Discussion Pre-Anesthesia Teaching/Discussion Notes: Instructed NPO after midnight before surgery,except medications with 15 cc of water. Medication instructions provided according to the PAT guidelines. History Surgery Operation Date: 06/19/20 13:05 Proposed Procedures p Left Total Knee Arthroplasty - Fazal Bay, DO Height/Weight Height: 5 ft 3 in Weight: 59.3 kg Allergies Allergy/AdvReac Type Severity Reaction Status Date / Time aspartame AdvReac Unknown Artificial Verified 05/25/20 12:15 sweetners- migraines cheese AdvReac Unknown Parmesan Verified 05/25/20 12:15 cheese- migraines doxycycline AdvReac Unknown Photosensit Verified 05/13/20 09:15 ivity lactose AdvReac Unknown Milk Verified 05/25/20 12:15 products- GI upset midazolam [From Versed] AdvReac Unknown Uncontrollable Verified 05/25/20 12:15 eye movement monosodium glutamate AdvReac Unknown Migraines Verified 05/25/20 12:15 Yeast AdvReac Unknown Autolyzed- Verified 05/25/20 12:15 migraines Medications Home Medications Medication Instructions Recorded Confirmed Last Taken GenTeal Tears Mild 1 drp OPHTHALMIC (EYE) BID PRN 09/11/18 05/27/20 12/05/19 22:00 Jakafi 10 mg PO BID 09/11/18 05/27/20 11/29/19 18:00 Restasis 1 drp OPHTHALMIC (EYE) Q12H 09/11/18 05/27/20 12/05/19 20:00 acetaminophen [Tylenol Extra 500 mg PO Q6H PRN 09/11/18 05/27/20 12/06/19 01:15 Strength] biotin 5 mg PO QAM 09/11/18 05/27/20 12/05/19 08:00 bisacodyl [Dulcolax (bisacodyl)] 5 mg PO HS PRN 09/11/18 05/27/20 12/04/19 20:00 bumetanide 0.25 mg PO BID 09/11/18 05/27/20 12/05/19 18:00 cholecalciferol (vitamin D3) 5,000 unit PO QAM 09/11/18 05/27/20 12/05/19 08:00 [Vitamin D3] diazepam [Valium] 5 mg PO HS 09/11/18 05/27/20 12/05/19 22:00 docusate sodium [Colace] 100 mg PO BID 09/11/18 05/27/20 12/05/19 18:00 doxazosin 1 mg PO QDL 09/11/18 05/27/20 12/06/19 01:15 flecainide 100 mg PO Q12H 09/11/18 05/27/20 12/06/19 01:15 folic acid 1 mg PO QAM 09/11/18 05/27/20 12/05/19 08:00 levothyroxine [Synthroid] 75 mcg PO 6XWK 09/11/18 05/27/20 12/06/19 01:15 melatonin 3 mg PO HS 09/11/18 05/27/20 12/05/19 22:00 metoprolol succinate 25 mg PO QPM 09/11/18 05/27/20 12/05/19 18:00 potassium chloride [Klor-Con] 20 meq PO QAM 09/11/18 05/27/20 12/05/19 08:00 rosuvastatin [Crestor] 10 mg PO 09/11/18 05/27/20 12/05/19 22:00 sennosides [senna] 17.2 mg PO 09/11/18 05/27/20 12/05/19 12:00 sumatriptan succinate [Imitrex] 50 mg PO UD PRN 09/11/18 05/27/20 11/30/19 13:00 thiamine HCl (vitamin B1) [Vitamin 300 mg PO QAM 09/11/18 05/27/20 12/05/19 08:00 B-1] gabapentin 100 mg capsule 100 mg PO 02/18/19 05/27/20 12/05/19 22:00 Prolia 60 mg SUBCUT Q6M 11/12/19 05/27/20 06/07/19 minoxidil 1 ml TOPICAL UD 11/12/19 05/27/20 12/03/19 08:00 oxycodone 5 mg PO Q6H PRN #30 tab 12/08/19 05/27/20 Unknown Past Medical History Medical History Anemia Atrial fibrillation Hx a. fib/flutter > S/P unsuccessful cardioversions (Not anticoagulated due to chronic thrombocytopenia/anemia) > Eventually pacemaker placed (has had some episodes of afib seen on pacer checks) Carotid artery stenosis per cardio office note 05/2018, LICA < 50%, DAILY OK on 2018 imaging Chronic kidney disease Stage III (Dr. Indigo Renteria/[facility]') Diabetes mellitus, type 2 Diet controlled GERD (gastroesophageal reflux disease) History of ductal carcinoma in situ (DCIS) of breast s/p lumpectomy and XRT, 2000 History of paroxysmal supraventricular tachycardia s/p ablation x 2, most recently 03/2017 Hypothyroidism + Thyroid nodules (under annual surveillance) Maxillary sinusitis, chronic Migraine Myelofibrosis x20 years, follows with Dr. Killian Pena ([facility]), on Jakafi, s/p many blood transfusions (+ antibodies), chronic thrombocytopenia- baseline plts 70-90s Myocardial Infarction Possible "Old [place]" seen on EKG in 2016 > but no CAD seen on 2016 heart cath Osteoarthritis Pacemaker Implanted 2016 (for a-fib). [employer]. Most recent check 03/24/20- follows with Karmen Silva/Dr. Alejo Valderrama ([facility]) Exercise / Class Metabolic Activity III < 4 Walking/Shop/Light housework Past Surgical History Surgical History History of adenoidectomy History of augmentation of both breasts X 2 History of axillary surgery R/L biopsies > usually uses RUE for blood draws History of bilateral tubal ligation Laparoscopic History of bone marrow biopsy x14 ([id number]) History of cardiac cath 2016 > no stents History of cardioversion unsuccessful (for A. fib) History of cataract surgery R/L History of colonoscopy History of herniorrhaphy History of hysterectomy + BSO/appendectomy History of incision and drainage Perianal abscess History of lumbar spinal fusion 06/2019 History of lumpectomy of right breast History of reverse total replacement of left shoulder joint Left reverse TSA: 11/02/18: Grade view 1, MAC#3, ETT 7.0 + PNB at [facility] History of tonsillectomy History of tooth extraction History of total knee arthroplasty Right TKA: 12/06/19: LMA#4 + PNB at [facility] History of vascular access device Left upper chest port- in place History of vein stripping Pacemaker Implanted 2016 S/P transesophageal echocardiogram (SONIA) x2 (most recent 2018 with ablation - [facility]) Past Anesthesia History No Hx of Anesthesia Complications (except remote episode of PONV (1983)) and No Family Hx of Anesthesia Complications History of PONV No Hx of Motion Sickness and History of PONV (episode PONVx1 (1983)) Social History Smoking Status: Never smoker Do You Dip or Chew Tobacco: No Hx Alcohol Use: Yes Alcohol type: beer alcohol intake frequency: a few times a month Hx Substance Use: No Review of Systems Patient denies chest pain, shortness of breath, dyspnea on exertion, joint pain, reflux, cough, wheezing, palpitations. Physical Exam Vital Signs VITALS BP 188/75 (pt states she was anxious/got lost coming to [facility] appt and feels elevated BP at visit related to this > pt closely monitors BPs at home. BP range typically 100s-120s/50s-60s and states she will continue to closely monitor) P 61 TEMP 98.1 SP02 100%RA RESP 16 PHYSICAL Full neck and c-spine range of motion. Full TMJ range of motion. TMD 4 finger breaths Mallampati Score 3 Dentition: upper/lower partial Lungs: clear throughout to auscultation Cardiac: regular rate and rhythm, no murmurs noted Spine: normal Carotid arteries: negative bruit Testing Laboratory Results PT 10.2 Seconds (9.0-12.0) 05/27/20 12:42 INR 1.0 (0.9-1.1) 05/27/20 12:42 APTT 23.4 Seconds (21.0-31.0) 05/27/20 12:42 Blood Type A Negative 05/27/20 12:42 Antibody Screen POSITIVE A 05/27/20 12:42 Positive antibodies > per Atif at blood bank, nothing further needed from [facility]. 05/27/20 WBC 2.28* H/H 9.8/29.3* PLATELETS 92* findings at baseline* SODIUM 138 POTASSIUM 3.8 CHLORIDE 106 CO2 27 BUN 21 CREATININE 1.44 GLUCOSE 106 PT 10.2 PTT 23.4 INR 1.0 TSH 1.060 FREE T4 1.26 11/14/19 HGBA1C 5.4% Electrocardiogram Date: 11/05/19 Paced rhythm at 72 bpm. Chest X-Ray Date: 07/12/19 Stable mild cardiomegaly, dual lead pacer in place. Port remains in place. No active pulmonary or pleural process. Echocardiogram Date: 07/12/19 EF: 60% Normal LV size. LV has normal systolic function. Normal right ventricular size and function. Mild mitral regurgitation with mitral annular calcification. The left atrium is severely enlarged. The right atrium is mildly enlarged. Diastolic function could not be assessed due to mitral annular calcification. Catheters consistent with dual-chamber pacemaker leads seen in the right ventricle and right atrium. As compared to 02/24/2016 there is no significant change. Cardiac Catheterization Date: 02/24/16 No significant disease noted. Other Testing Pacer check: 03/24/20: Amicus. Battery life remaining 4 years 11 months. RA paced 98.7% RV paced 0.07%. No events.
[2020-05-27 13:44] LABS: Partial Thromboplastin Ratio 0.9; Partial Thromboplastin Time 23.4 Seconds (21.0-31.0); Prothrombin Time 10.2 Seconds (9.0-12.0)
--- NOTE | 2020-06-18 07:21 | History & Physical Report ---
Date of Service June 18, 2020 Assessment & Plan (1) Osteoarthritis of left knee: We will proceed with a left total knee arthroplasty. Postoperatively she will be started on aspirin for DVT prophylaxis and kept overnight in the hospital for postoperative medical management. She will likely receive 1 super pack of irradiated platelets preoperatively and possibly 2 units of packed red blood cells irradiated with antibodies postoperatively. She plans to use community home nursing upon discharge. History of Present Illness Chief Complaint: Osteoarthritis of the left knee. Primary Care Provider: Elie Armas is a pleasant 79-year-old female who is been dealing with chronic increasing left knee pain. X-rays and clinical examination have been diagnostic for advanced osteoarthritis of the left knee. After failing extensive conservative treatment, she has elected proceed with a left total knee arthroplasty. She does have a history of a right knee replacement done in November 2019 and has done well with that. She does have a history of myelofibrosis which has led to multiple blood transfusions and infusion of platelets.. Allergies Allergy/AdvReac Type Severity Reaction Status Date / Time aspartame AdvReac Unknown Artificial Verified 05/25/20 12:15 sweetners- migraines cheese AdvReac Unknown Parmesan Verified 05/25/20 12:15 cheese- migraines doxycycline AdvReac Unknown Photosensit Verified 05/13/20 09:15 ivity lactose AdvReac Unknown Milk Verified 05/25/20 12:15 products- GI upset midazolam [From Versed] AdvReac Unknown Uncontrollable Verified 05/25/20 12:15 eye movement monosodium glutamate AdvReac Unknown Migraines Verified 05/25/20 12:15 Yeast AdvReac Unknown Autolyzed- Verified 05/25/20 12:15 migraines Home Medications Medication Instructions Recorded Confirmed Type GenTeal Tears Mild 1 drp OPHTHALMIC (EYE) BID PRN 09/11/18 05/27/20 History Jakafi 10 mg PO BID 09/11/18 05/27/20 History Restasis 1 drp OPHTHALMIC (EYE) Q12H 09/11/18 05/27/20 History acetaminophen [Tylenol Extra 500 mg PO Q6H PRN 09/11/18 05/27/20 History Strength] biotin 5 mg PO QAM 09/11/18 05/27/20 History bisacodyl [Dulcolax (bisacodyl)] 5 mg PO HS PRN 09/11/18 05/27/20 History bumetanide 0.25 mg PO BID 09/11/18 05/27/20 History cholecalciferol (vitamin D3) 5,000 unit PO QAM 09/11/18 05/27/20 History [Vitamin D3] diazepam [Valium] 5 mg PO HS 09/11/18 05/27/20 History docusate sodium [Colace] 100 mg PO BID 09/11/18 05/27/20 History doxazosin 1 mg PO QDL 09/11/18 05/27/20 History flecainide 100 mg PO Q12H 09/11/18 05/27/20 History folic acid 1 mg PO QAM 09/11/18 05/27/20 History levothyroxine [Synthroid] 75 mcg PO 6XWK 09/11/18 05/27/20 History melatonin 3 mg PO HS 09/11/18 05/27/20 History metoprolol succinate 25 mg PO QPM 09/11/18 05/27/20 History potassium chloride [Klor-Con] 20 meq PO QAM 09/11/18 05/27/20 History rosuvastatin [Crestor] 10 mg PO HS 09/11/18 05/27/20 History sennosides [senna] 17.2 mg PO HS 09/11/18 05/27/20 History sumatriptan succinate [Imitrex] 50 mg PO UD PRN 09/11/18 05/27/20 History thiamine HCl (vitamin B1) [Vitamin 300 mg PO QAM 09/11/18 05/27/20 History B-1] gabapentin 100 mg capsule 100 mg PO HS 02/18/19 05/27/20 History Prolia 60 mg SUBCUT Q6M 11/12/19 05/27/20 History minoxidil 1 ml TOPICAL UD 11/12/19 05/27/20 History oxycodone 5 mg PO Q6H PRN #30 tab 12/08/19 05/27/20 Rx Past Med/Surg History Medical History Anemia Atrial fibrillation Hx a. fib/flutter > S/P unsuccessful cardioversions (Not anticoagulated due to chronic thrombocytopenia/anemia) > Eventually pacemaker placed (has had some episodes of afib seen on pacer checks) Carotid artery stenosis per cardio office note 05/2018, LICA < 50%, DAILY OK on 2018 imaging Chronic kidney disease Stage III (Dr. 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 Killian Pena ([facility]), on Jakafi, s/p many blood transfusions (+ antibodies), chronic thrombocytopenia- baseline plts 70-90s Myocardial Infarction Possible "Old [place]" seen on EKG in 2016 > but no CAD seen on 2016 heart cath Osteoarthritis Pacemaker Implanted 2016 (for a-fib). [employer]. Most recent check 03/24/20- follows with Karmen Silva/Dr. Alejo Valderrama ([facility]) Surgical History History of adenoidectomy History of augmentation of both breasts X 2 History of axillary surgery R/L biopsies > usually uses RUE for blood draws History of bilateral tubal ligation Laparoscopic History of bone marrow biopsy x14 ([id number]) History of cardiac cath 2016 > no stents History of cardioversion unsuccessful (for A. fib) History of cataract surgery R/L History of colonoscopy History of herniorrhaphy History of hysterectomy + BSO/appendectomy History of incision and drainage Perianal abscess History of lumbar spinal fusion 06/2019 History of lumpectomy of right breast History of reverse total replacement of left shoulder joint Left reverse TSA: 11/02/18: Grade view 1, MAC#3, ETT 7.0 + PNB at [facility] History of tonsillectomy History of tooth extraction History of total knee arthroplasty Right TKA: 12/06/19: LMA#4 + PNB at [facility] History of vascular access device Left upper chest port- in place History of vein stripping Pacemaker Implanted 2016 S/P transesophageal echocardiogram (SONIA) x2 (most recent 2018 with ablation - [facility]) Social History Smoking Status: Never smoker Second Hand Exposure: Yes ( A CHILD-FATHER SMOKED); Hx Alcohol Use: Yes Alcohol type: beer Hx Substance Use: No Preferred Language: Mohawk Communication Ability: Effective Manager Quality Improvement Required: No Beliefs That Will Affect Care: None Current Living Situation: Spouse Feels Safe at Home: Yes Assistive Devices: Denture - Upper, Denture - Lower and Glasses Review of Systems All systems reviewed & are unremarkable except as noted in HPI & below. Physical Exam On physical examination of the left knee, she has a slight varus deformity. She has good motion 0 to 120 degrees. She has no instability. She has tenderness palpation over the distal medial femoral condyle and over the medial joint line.. Constitutional WD/WN, vitals as above Eyes PERRL, conjunctivae normal, anicteric sclerae ENMT external ear and nose normal, oropharynx normal Neck trachea midline, no thyromegaly Respiratory normal respiratory effort Cardiovascular RRR, no murmur, no edema Gastrointestinal (Abdomen) normal bowel sounds, soft, nontender, no hepatosplenomegaly Psychiatric A+Ox3, euthymic affect Results & Data Results & Data Laboratory Results . Diagnostic Findings X-rays of the left knee do show advanced osteoarthritis with joint space narrowing, osteophyte formation, and [id number] articulation. PG Care Time/CCT Total # of Minutes Spent Total Time Spent with Patient: Total time spent is greater than 50% in coordination of care (as documented) at patient's floor/unit and/or counseling patient: Coding Level of Care Code None Diagnoses Osteoarthritis of left knee M17.12
[~2020-06-19 09:51] MED LIST changes: +BUPIVACAINE 0.25% 30 ML VIAL ONE; -BUPIVACAINE LIPOSOME/PF 266 MG, BUPIVACAINE/EPINEPHRINE 50 ML, SODIUM CHLORIDE 0.9% 30 ... INFIL SCH; -CEFAZOLIN 1000MG 1,000 MG/7.5 ML SYR IV SCH; +DEXAMETHASONE SOD INJ 4 MG/ML VIAL ONE; +EPINEPHrine INJ 1 MG/ML AMP ONE; -ROPIVACAINE 0.5% HCL/PF 150 MG, BUPIVACAINE 0.5% MPF 30 ML, EPINEPHrine 30MG/30ML (OR U... INFIL SCH; +ROPIVACAINE 0.5% HCL/PF 150 MG, BUPIVACAINE 0.75% MPF 20 ML, EPINEPHrine 30MG/30ML (OR ... INSTIL SCH; -SODIUM CHLORIDE 0.9% 1,000 ML IV SCH; +ceFAZolin 1000MG 1,000 MG/7.5 ML SYR IV SCH; +dexAMETHasone 4 MG TAB PO SCH
[2020-06-19 11:07] LABS: Hematocrit (blood only) 27.7 % (37-47); Hemoglobin 9.2 g/dL (12.0-16.0); Mean Corpuscular Hemoglobin 33.9 pg (25-34); Mean Corpuscular Volume 102.2 fL (80-100); RDW Coefficient of Variation 14.4 % (11.5-14.5); RDW Standard Deviation 53.4 fL (36.4-46.3); Red Blood Count 2.71 M/uL (4.2-5.4); White Blood Count 2.07 K/uL (4.8-10.8)
[2020-06-19 11:09] LABS: Mean Corpuscular Hgb Conc 33.2 g/dL (32-36); Mean Platelet Volume 11.8 fL (7.4-10.4); Platelet Count 65 K/uL (130-400)
--- NOTE | 2020-06-19 11:13 | History & Physical Bridge Note ---
Date of Service June 19, 2020 History & Physical Bridge Note I have examined the patient, reviewed the History & Physical and in the interval since the performance of the History & Physical I have noted the following changes of clinical significance: no changes noted
[2020-06-19 11:25] LABS: Eosinophils # (auto) 0.02 K/uL (0-0.5); Immature Granulocytes # (auto) 0.01 K/uL (0.00-0.02); Immature Granulocytes % (auto) 0.5 %; Lymphocytes # (auto) 0.42 K/uL (1.2-3.4); Lymphocytes % (auto) 20.3 %; Monocytes # (auto) 0.37 K/uL (0.11-0.59); Monocytes % (auto) 17.9 %; Neutrophils # (auto) 1.25 K/uL (1.4-6.5); Neutrophils % (auto) 60.3 %; Polychromasia 1+; Tear Drop Cells 1+
[2020-06-19] MEDS ORDERED: SODIUM CHLORIDE 0.9% 250 ML IV PRN (11:49)
[2020-06-19] MEDS ORDERED: MIDAZOLAM HCL 1 MG/ML 2ML VIAL ONE (12:11)
[2020-06-19] MEDS ORDERED: PROPOFOL IV EMULSION 10 MG/ML 20 ML VIAL IV ONE ×2 (12:11→14:22)
[2020-06-19] MEDS ORDERED: LIDOCAINE HCL 2% 2 ML VIAL/AMP(20MG/ML) INFIL ONE (12:11)
[2020-06-19] MEDS ORDERED: fentaNYL citrate 100 MCG/2 ML VIAL ONE (12:11)
[2020-06-19] MEDS ORDERED: LIDOCAINE HCL 2% MPF (LOCAL) 5 ML VIAL INFIL ONE (14:22)
[2020-06-19] MEDS ORDERED: ROPIVACAINE 0.5% 5 MG/ML 30 ML VIAL ONE (14:24)
[2020-06-19] MEDS ORDERED: ORTHO JOINT ANESTHETIC ONE (14:30)
[2020-06-19] MEDS ORDERED: ATROPINE SULFATE 0.1 MG/ML 10ML SYR IV PRN ×2 (14:38→15:13)
[2020-06-19] MEDS ORDERED: PROMETHAZINE HCL 6.25 MG in SODIUM CHLORIDE 0.9% 50 ML IV PRN (14:38)
[2020-06-19] MEDS ORDERED: HYDROmorphone INJ 1 MG/ML SYRINGE IV PRN (14:38)
[2020-06-19] MEDS ORDERED: ONDANSETRON INJ 2 MG/ML 2 ML VIAL IV PRN ×3 (14:38→18:03)
[2020-06-19] MEDS ORDERED: LABETALOL HCL IV 5 MG/ML 20ML IV PRN (14:38)
[2020-06-19] MEDS ORDERED: ONDANSETRON INJ 2 MG/ML 2 ML VIAL ONE (14:58)
[2020-06-19] MEDS ORDERED: ROCURONIUM BROMIDE 10 MG/ML 5 ML VIAL IV ONE (14:58)
[2020-06-19] MEDS ORDERED: ePHEDrine sulfate 50 MG/ML AMP IV PRN (15:13)
--- NOTE | 2020-06-19 16:03 | Operative Report ---
PG Post Operative Report Pre & Post Diagnosis Operation Date: 06/19/20 13:00 Pre-Op Diagnosis: Left Knee Degenerative Joint Disease Post-Op Diagnosis: Left Knee Degenerative Joint Disease I identified the patient and participated in the time-out.: Yes Procedure Operation Date: 06/19/20 13:00 Actual Procedures p Left Total Knee Arthroplasty, Cemented(Left) - Fazal Bay DO Surgeon Fazal Bay DO Rn Care Transition Fazal Wetzel PAC Estimated Blood Loss 10 Findings Consistent with Post-Op Diagnosis Specimens Left femoral and tibial bone Complications none Disposition Disposition: Recovery Room Indications Chanda is a pleasant 79-year-old female who is been ill with chronic increasing left knee pain. X-rays and clinical examination were diagnostic for advanced osteoarthritis of the left knee. After failing conservative treatment, she elected proceed with a left total knee arthroplasty. She recently underwent a right knee replacement and did well with that. Description of Procedure Implants used: I used a Emile Persona total knee arthroplasty system with a size 8 narrow femur, D tibia, 29 patella, and a size 12 medial congruent polyethylene bearing. All components were cemented in place with Simplex HV cement. Chanda arrived [facility] for the above procedure. She was seen in the preoperative holding area and the operative extremity was identified and signed. She was given a preoperative antibiotic, TXA and an adductor nerve block. She was taken back to the operating room and laid on the table in supine position. She was given general anesthesia. The operative knee was then prepped and draped in sterile fashion. A timeout was done, and the patient and the operative extremity was properly identified. A midline incision was made directly over the patella. Dissection was taken down to the extensor mechanism. A subvastus arthrotomy was used. The medial retinaculum was released and the fat pad was mostly excised. The knee was flexed and the ACL, PCL, and meniscus were removed. A drill was sent down the center of the femoral canal followed by an intramedullary valerie. Off that valerie a distal femoral cutting block was placed. 9 mm was resected off the distal femur at 5 of valgus. A posterior referencing AP sizing guide was then placed on the distal femur. The femur measured to be a size 8. 2 drill holes were placed in 3 of external rotation. A 4-in-1 cutting block was then impacted into place. Anterior, posterior, and chamfer cuts were then made. The proximal tibia was then exposed. An external tibial alignment guide was placed. A tibial cut guide was then anchored in place and the proximal tibia was then resected. The posterior aspect of the knee was then opened up and any additional meniscus fragments and osteophytes were removed. The tibia measured to be a size G. The tibial plate was then placed in the appropriate rotation and the tibia was drilled and punched. Trial components were then placed. I used a size 12 medial congruent polyethylene insert. The knee was brought through a full range of motion and felt to be stable. The peg holes for the femoral component were then drilled. The patella was then everted and 9 mm was resected off the posterior aspect of the patella. The patella measured to be a size 29. 3 peg holes were then drilled. A trial patella was placed. The knee was once again brought through a full range of motion and felt to be stable. Trial components were then removed. The surrounding soft tissues were injected with 100 cc of an orthopedic pain control cocktail. All components were then cemented into place with Simplex HV cement. The final polyethylene insert was then snapped into place. Once cement was dry the tourniquet was deflated. Hemostasis was obtained. A dilute betadyne lavage was then done for 3 minutes. The joint was then irrigated with normal saline solution. The subvastus arthrotomy was then closed with #1 Vicryl suture. The skin was closed with 2-0 Vicryl, 3-0V lock suture, and nikolay. A Silverlon and a soft compressive dressing were placed. She was then transferred to a hospital bed and taken to the postanesthesia care unit in stable condition. She tolerated the procedure well. Fazal Wetzel PA-C, was present for the entire procedure. He was critical for patient positioning, prepping, draping, retraction exposure, wound closure and application of sterile dressing. I attest to the content of the Intraoperative Record and any orders documented therein. Any exceptions are noted below.
--- NOTE | 2020-06-19 16:49 | Anesthesiology Progress Note ---
Date of Service June 19, 2020 Anesthesia Post Procedure Vital Signs Vital Signs: Temp Pulse Pulse Pulse Resp BP BP 06/19/20 16:40 60 16 146/78 H 06/19/20 16:33 36.3 C L 61 16 149/56 H 06/19/20 12:51 36.7 C 60 18 154/56 H 06/19/20 11:57 36.7 C 60 18 168/60 H 06/19/20 11:27 36.7 C 83 20 171/76 H 06/19/20 11:24 36.7 C 83 20 171/76 H 06/19/20 10:48 36.7 C 83 20 171/76 H Pulse Ox 06/19/20 16:40 100 06/19/20 16:33 100 06/19/20 12:51 97 06/19/20 11:57 98 06/19/20 11:27 100 06/19/20 11:24 100 06/19/20 10:48 100 Transfer of Care Handoff Completed per policy Notes Mental Status: alert / awake / arousable Patient Amnestic to Procedure: Yes Nausea / Vomiting: adequately controlled Pain: adequately controlled Airway Patency, RR, SpO2: stable & adequate BP & HR: stable & adequate Hydration State: stable & adequate Anesthetic Complications: no major complications apparent
--- NOTE | 2020-06-19 16:51 | XRay Report ---
XR knee LT 1 or 2V routine CLINICAL HISTORY: Postoperative evaluation. COMPARISON: Left knee radiographs January 20, 2020. FINDINGS: Alignment of the total left knee arthroplasty is anatomic. There are skin nikolay. There i s no periprosthetic fracture. No unexpected radiopaque foreign bodies are present. IMPRESSION: Expected findings following total left knee arthroplasty. ACT 112: Negative or not required by law. Electronically signed by: Lupillo Bernal M.D. 06/19/2020 4:50 PM
[2020-06-19] MEDS: fentaNYL citrate 100 MCG/2 ML VIAL IV PRN ×2 (16:58→17:05)
[2020-06-19] MEDS ORDERED: NALOXONE HCL 0.4 MG/1 ML VIAL/CARP IV PRN (18:03)
[2020-06-19] MEDS ORDERED: bisacodyL 10 MG SUPP PR PRN (18:03)
[2020-06-19] MEDS ORDERED: oxyCODONE HCL IR 5 MG TAB (IMMEDIATE RELEASE) PO PRN (18:03)
[2020-06-19] MEDS ORDERED: HYDROmorphone INJ 0.5 MG/0.5 ML SYR IV PRN (18:03)
[2020-06-19] MEDS ORDERED: SUMAtriptan succinate 50 MG TAB PO PRN (18:03)
[2020-06-19] MEDS ORDERED: MAGNESIUM HYDROXIDE SUSP 30 ML UDC PO PRN (18:03)
[2020-06-19] MEDS ORDERED: METOCLOPRAMIDE HCL INJ 5 MG/ML 2 ML VIAL IV PRN (18:03)
[2020-06-19] MEDS ORDERED: ARTIFICIAL TEARS OP PRN (18:07)
[2020-06-19] MEDS: SODIUM CHLORIDE 0.9% 1000ML 1,000 ML IV SCH (18:36)
[2020-06-19] MEDS: KETOROLAC TROMETHAMINE 15 MG/ML VIAL IV SCH (19:32)
[2020-06-19] MEDS: BUMETANIDE 1 MG TAB PO SCH (20:18)
[2020-06-19] MEDS: FLECAINIDE ACETATE 100 MG TABLET PO SCH (20:19)
[2020-06-19] MEDS: DOCUSATE SODIUM 100 MG CAP PO SCH (20:20)
[2020-06-19] MEDS: ASPIRIN 81 MG ECTAB PO SCH (20:21)
[2020-06-19] MEDS ORDERED: GABAPENTIN 100 MG CAP PO SCH (21:00)
[2020-06-19] MEDS ORDERED: SENNA 8.6 MG TAB PO SCH (21:00)
[2020-06-19] MEDS ORDERED: METOPROLOL SUCC 25MG EXT REL TAB PO SCH (21:00)
[2020-06-19] MEDS ORDERED: ROSUVASTATIN CALCIUM 10 MG TAB PO SCH (21:00)
[2020-06-19] MEDS: ceFAZolin 2000MG 2,000 MG/15 ML SYR IV SCH (22:50)
[2020-06-19] MEDS: ACETAMINOPHEN 500 MG TAB PO SCH (22:51)
[2020-06-20] MEDS: KETOROLAC TROMETHAMINE 15 MG/ML VIAL IV SCH ×3 (02:20→13:40)
[2020-06-20 06:10] LABS: Hematocrit (blood only) 23.2 % (37-47); Hemoglobin 7.6 g/dL (12.0-16.0); Mean Corpuscular Hemoglobin 33.8 pg (25-34); Mean Corpuscular Hgb Conc 32.8 g/dL (32-36); Mean Corpuscular Volume 103.1 fL (80-100); RDW Coefficient of Variation 14.6 % (11.5-14.5); RDW Standard Deviation 54.2 fL (36.4-46.3); Red Blood Count 2.25 M/uL (4.2-5.4); White Blood Count 4.23 K/uL (4.8-10.8)
[2020-06-20 06:15] LABS: Mean Platelet Volume 11.3 fL (7.4-10.4); Platelet Count 81 K/uL (130-400)
[2020-06-20] MEDS: ACETAMINOPHEN 500 MG TAB PO SCH ×2 (06:16→13:40)
[2020-06-20] MEDS ORDERED: LEVOTHYROXINE SODIUM 75 MCG TABLET PO SCH (06:30)
[2020-06-20] MEDS: ceFAZolin 2000MG 2,000 MG/15 ML SYR IV SCH (06:34)
[2020-06-20 06:49] LABS: BUN Creatinine Ratio 13.7 (10-20); Calcium 8.1 mg/dl (8.5-10.1); Creatinine Clr Calc Pharmacy 31.2 ml/min; Est GFR (African American) 48.7; Potassium 4.3 mmol/L (3.5-5.1)
[2020-06-20] MEDS: SODIUM CHLORIDE 0.9% 1000ML 1,000 ML IV SCH (07:02)
[2020-06-20] MEDS ORDERED: SODIUM CHLORIDE 0.9% 250 ML IV PRN (07:37)
--- NOTE | 2020-06-20 07:49 | Orthopedic Progress Note ---
Date of Service June 20, 2020 Assessment & Plan (1) Status post left knee replacement: Overall she is doing fairly well. She is not having much pain in the left knee. Her H&H is a little low. She does have myelofibrosis and has required 2 units of irradiated packed red blood cells after every other previous surgery. We do have those in house. I would like to transfuse her with those 2 units of packed red blood cells before discharge today. I called physical therapy and asked if they could see her before hand. After the 2 units of packed red blood cells we will get a H&H an hour later. If her H&H is improved then she can be discharged home today. She is on aspirin for DVT prophylaxis. She will follow- up with orthopedics in 2 weeks. Rosa Armas was seen and examined at bedside this morning. Overall she is doing very well. She is not having much pain in the left knee. She has been up and ambulating. She has no complaints.. Review of Systems All systems reviewed & are unremarkable except as noted in HPI & below. Physical Exam On physical examination of the left knee, the dressing is clean and dry. She has active dorsiflexion plantarflexion of the left ankle. She still has a little bit of numbness from the spinal and the nerve block. Results & Data Results & Data Laboratory Results H & H 06/19/20 06/20/20 Range/Units 10:35 05:35 Hgb 9.2 L 7.6 L (12.0-16.0) g/dL Hct 27.7 L 23.2 L (37-47) % Coagulation 05/27/20 Range/Units 12:42 INR 1.0 (0.9-1.1) . Diagnostic Findings Postoperative x-rays of the left knee show the prosthesis to be in anatomic alignment without any evidence of fracture, dislocation, or loosening.. PG Care Time/CCT Total # of Minutes Spent Total Time Spent with Patient: Total time spent is greater than 50% in coordination of care (as documented) at patient's floor/unit and/or counseling patient: Coding Level of Care Code 85986 Post Operative Follow-Up Diagnoses Status post left knee replacement Z96.652
--- NOTE | 2020-06-20 07:51 | Discharge Summary ---
Date of Service June 20, 2020 Admission HPI (Per Admitting) Chanda is a pleasant 79-year-old female who is been dealing with chronic increasing left knee pain. X-rays and clinical examination have been diagnostic for advanced osteoarthritis of the left knee. After failing extensive conservative treatment, she has elected proceed with a left total knee arthroplasty. She does have a history of a right knee replacement done in November 2019 and has done well with that. She does have a history of myelofibrosis which has led to multiple blood transfusions and infusion of platelets.. Admission Exam (Per Admitting) On physical examination of the left knee, she has a slight varus deformity. She has good motion 0 to 120 degrees. She has no instability. She has tenderness palpation over the distal medial femoral condyle and over the medial joint line.. Principal Diagnosis Same as "Discharge Diagnosis" noted below under Discharge Instructions. Discharge Exam On physical examination of the left knee, the dressing is clean and dry. She has active dorsiflexion plantarflexion of the left ankle. She still has a little bit of numbness from the spinal and the nerve block. Discharge Data Procedures Performed Operation Date: 06/19/20 13:00 Actual Procedures p Left Total Knee Arthroplasty, Cemented(Left) - Fazal Bay DO Ordered Studies 06/19/20 05:00 US - OR guided needle placemen Routine Hospital Course (1) Status post left knee replacement: On June 19, 2020 Chanda arrived at [facility] and underwent a left knee replacement without complication. She had a super pack of platelets preoperatively. Postoperatively she was started on aspirin for DVT prophylaxis and transferred to the general orthopedic floors. Her hospital course was relatively uneventful. On postop day #1 her H&H was a little low which is to be expected. She has myelofibrosis. We transfused her with 2 units of irradiated packed red blood cells. Posttransfusion follow-up H&H was within her normal limits and she was then discharged to home. She will follow-up with orthopedics in 2 weeks. PG Care Time/CCT Total # of Minutes Spent Total Time Spent with Patient: Total time spent is greater than 50% in coordination of care (as documented) at patient's floor/unit and/or counseling patient: Discharge Plan Discharge Items Patient Disposition: Home - Home Health Services Reason For Visit: POST SURGICAL CARE Discharge Diagnosis: Left knee replacement Activity: As commented below Non-emergency contact: Surgeon Call non-emergency contact if: your wound has increased redness and your wound has increased drainage Follow-up/Referrals: Elie Singleton DO [Primary Care Provider] - Diet: Regular Addtl Attending Provider Instructions: Activity and Therapy Recommendations: * If you are using [facility] then therapy will be provided at your home until they feel you have accomplished all of your goals. * If you are using [facility] then Physical Therapy will be provided until they feel you are ready to start Outpatient Physical Therapy. * If you are not using home therapy then Outpatient Physical Therapy should start about 3-5 days from your day of surgery. Therapy will last about 6-10 weeks * It is important not to put a pillow under your knee when you are relaxing or sleeping. It is just as important to make sure you are getting your knee perfectly straight as it is to regain your knee bend. * You were shown a series of exercises in the hospital. Do these exercises three times each day including the exercises you were shown in physical therapy. * Get up and walk several times each day. For the first four weeks, try not to stand or walk for more than one hour at a time. If you do stand or walk for more than one hour, you will not hurt anything, but your leg will likely swell. * As you feel comfortable, you may change from the walker or crutches to a cane and then to independent walking. Medications: * Narcotic You will likely be sent home from the hospital with a prescription for the narcotic pain medication that worked best throughout your stay. * Aspirin Most patients will be required to take Aspirin 81mg twice a day for 6 weeks after surgery. This is obtained [id number] and a prescription is not necessary. * Other medications may be prescribed for specific circumstances. If you have any questions, please call the office at . * Resume previous home medications unless otherwise instructed TEDs/Elastic Stockings: The white elastic stockings help limit swelling and prevent blood clots from forming in your legs.~ The more you wear them, the more they work. Wear them for six weeks. Dressing Care: You may remove the dressing in 2 days after the surgery. If the incision is not draining then you may leave the nikolay open to air. If there is a little bit of drainage or if the nikolay are getting stuck on your clothing then cover the incision with a dry dressing. The nikolay will be removed at your 2 week follow-up appointment. Showering: You may shower 5 days after the day of surgery. You may shower with the nikolay exposed. Let soapy water run over the nikolay and pat them dry. Do not scrub or soak the incision. Things To Watch For: * Drainage from the incision site that occurs more than one week after your surgery. * Increased redness at the incision site. * Fever above 102 degrees Fahrenheit. * Unusual chest pain or shortness of breath. * Call [facility] at with any of the above problems Follow-Up Visit: Follow-up with Dr. Bay's PA (Fazal Wetzel) 2-3 weeks after your day of surgery. He will remove your nikolay and answer any questions. If you have any additional questions or concerns, Dr Bay is usually in the office at the same time and will be available An appointment was probably scheduled when you signed-up for surgery in the office. If you have any questions call Office Instructions: More detailed instructions as well as Frequently Asked Questions were provided in a folder by our office when you signed-up for surgery. Please review these instructions when you get home. If you have any further questions or concerns, please feel free to call the office at [phone] Pending Studies at Discharge: No Stand-Alone Forms: [facility] [employer], Smoking Cessation Medications and DC Order Prescriptions: New aspirin 81 mg Tablet,Delayed Release (Dr/Ec) 81 mg PO BID 42 Days Qty: 0 RF: 0 Continued gabapentin 100 mg capsule 100 mg PO HS RF: 0 minoxidil 2 % Solution 1 ml TOPICAL UD RF: 0 Prolia 60 mg/mL Syringe 60 mg SUBCUT Q6M RF: 0 doxazosin 1 mg Tablet 1 mg PO QDL RF: 0 sumatriptan succinate [Imitrex] 50 mg Tablet 50 mg PO UD PRN (Reason: Migraine Headache) RF: 0 thiamine HCl (vitamin B1) [Vitamin B-1] 250 mg Tablet 300 mg PO QAM RF: 0 bumetanide 0.5 mg Tablet 0.25 mg PO BID RF: 0 flecainide 100 mg Tablet 100 mg PO Q12H RF: 0 docusate sodium [Colace] 100 mg Capsule 100 mg PO BID RF: 0 folic acid 1 mg Tablet 1 mg PO QAM RF: 0 rosuvastatin [Crestor] 10 mg Tablet 10 mg PO HS RF: 0 biotin 5 mg Tablet 5 mg PO QAM RF: 0 cholecalciferol (vitamin D3) [Vitamin D3] 5,000 unit Tablet 5,000 unit PO QAM RF: 0 GenTeal Tears Mild 0.1-0.3 % Drops 1 drp OPHTHALMIC (EYE) BID PRN (Reason: Dry Eye(S)) RF: 0 Jakafi 10 mg Tablet 10 mg PO BID RF: 0 sennosides [senna] 8.6 mg Tablet 17.2 mg PO HS RF: 0 melatonin 3 mg Tablet 3 mg PO HS RF: 0 acetaminophen [Tylenol Extra Strength] 500 mg Tablet 500 mg PO Q6H PRN (Reason: Pain) RF: 0 levothyroxine [Synthroid] 75 mcg Tablet 75 mcg PO [id number] RF: 0 potassium chloride [Klor-Con] 20 mEq Packet 20 meq PO QAM RF: 0 bisacodyl [Dulcolax (bisacodyl)] 5 mg Tablet,Delayed Release (Dr/Ec) 5 mg PO HS PRN (Reason: Constipation) RF: 0 Restasis 0.05 % Dropperette 1 drp OPHTHALMIC (EYE) Q12H RF: 0 metoprolol succinate 25 mg Capsule,Sprinkle,Er 24hr 25 mg PO QPM RF: 0 diazepam [Valium] 5 mg Tablet 5 mg PO HS RF: 0 vitamin T50-kgsnt acid 1,000-400 mcg Tablet, Sublingual 1 tab sublingual DAILY RF: 0 oxycodone 5 mg tablet 5 mg PO Q6H PRN (Reason: pain) Qty: 30 RF: 0 Discharge Orders: Discharge Order (Routine); Ordered 06/20/20 Ordered By: Fazal Bay Admission Data Admit Date/Time: 06/19/20 16:30 Attending Provider: Fazal Bay Admit Provider: Fazal Bay Primary Care Provider: Elie Singleton
[2020-06-20] MEDS: DOCUSATE SODIUM 100 MG CAP PO SCH (08:53)
[2020-06-20] MEDS: ASPIRIN 81 MG ECTAB PO SCH (08:53)
[2020-06-20] MEDS: FLECAINIDE ACETATE 100 MG TABLET PO SCH (08:54)
[2020-06-20] MEDS: BUMETANIDE 1 MG TAB PO SCH (08:54)
[2020-06-20] MEDS ORDERED: POTASSIUM CHLORIDE PWD 20 MEQ PACK PO SCH (09:00)
[2020-06-20] MEDS ORDERED: FOLIC ACID 1 MG TAB PO SCH (09:00)
[2020-06-20] MEDS ORDERED: THIAMINE HCL 100 MG TAB PO SCH (09:00)
[2020-06-20] MEDS ORDERED: MULTIVITAMIN TAB PO SCH (09:00)
[2020-06-20] MEDS ORDERED: DOXAZOSIN MESYLATE 1 MG TAB PO SCH (11:30)
[2020-06-20] MEDS ORDERED: HEPARIN 100 UNIT/ML 5ML FLUSH FLUSH STA (13:45)
[2020-06-20 14:29] LABS: Hematocrit (blood only) 26.9 % (37-47); Hemoglobin 9.1 g/dL (12.0-16.0)
== END 2020-06-20 15:45 | disposition home health service (06) ==
LOC: 3E 09:51 → ASU 09:51